=== PATIENT | male | born 1975 | race Caucasian/White ===

== ENCOUNTER → 2019-02-18 08:10 | Outpatient (CLI) | payer OTHER, SELFPAY ==
[2019-02-18 09:37] LABS: Alanine Aminotransferase 36 IU/L (21-72); Aspartate Aminotransferase 26 IU/L (17-59); BUN Creatinine Ratio 23.3 (6-22); Blood Urea Nitrogen 21 mg/dL (9-20); Calcium 8.9 mg/dL (8.4-10.2); Carbon Dioxide 26 mmol/L (22-32); Chloride 106 mmol/L (98-107); Cholesterol 154 mg/dL (140-199); Estimated Glomerular Filt Rate > 60.0 mL/min (>60); Glucose 101 mg/dL (70-100); HDL Cholesterol 48 mg/dL (40-60); HEMOLYSIS < 15 (0-50); LDL Cholesterol Calculated 94 mg/dL (<100); Potassium 4.2 mmol/L (3.4-5.1); Sodium 139 mmol/L (137-145); Triglycerides 62 mg/dL (35-150)
== END ==
PROVIDERS: PCP Internal Medicine; Visit Provider Internal Medicine
DX: Z13.1 Encounter for screening for diabetes mellitus (principal); E78.5 Hyperlipidemia, unspecified
CPT/HCPCS: 36415; 80048; 80061; 84450; 84460

== ENCOUNTER 2021-04-14 19:23 | Inpatient (IN) | payer OTHER, SELFPAY ==
[2021-04-14] VITALS (13 sets, daily range): BP systolic 110–134; BP diastolic 66–84; PULSE 101–134; RESP 16–43; TEMP 37.2; O2SAT 87–96
--- NOTE | 2021-04-14 19:52 | DI.RAD.S_ITS ---
PROCEDURE: XR CHEST 1V INDICATIONS: flu-like symptoms TECHNIQUE: One view of the chest was acquired. COMPARISON: None. FINDINGS: Surgical changes and devices: None. Lungs and pleura: Low lung volumes. Bilateral patchy airspace opacity. No pleural effusions or pneumothorax. Mediastinum: Mediastinal contours appear normal. Heart size is within normal limits. Bones and chest wall: No suspicious bony lesions. Overlying soft tissues appear unremarkable. IMPRESSION: Low lung volumes. Bilateral patchy airspace opacity. Findings in keeping with COVID-19 pneumonia. Dictated by: Geo Babcock M.D. on 04/14/2021 at 20:41 Approved by: Geo Babcock M.D. on 04/14/2021 at 20:42
[2021-04-14 20:26] LABS: Add Manual Diff / Slide Review NO; Basophils Absolute Auto 0 /uL (0-100); Basophils Percent Auto 0.2 % (0-2); Eosinophils Absolute Auto 0 /uL (0-450); Hematocrit 47.3 % (41-53); Hemoglobin 16.3 g/dL (13.5-17.5); Lymphocytes Absolute Auto 900 /uL (1100-4500); Lymphocytes Percent Auto 13.1 % (25-40); Mean Corpuscular HGB Conc 34.4 % (30-36); Mean Corpuscular Hemoglobin 30.6 PG (26-34); Mean Corpuscular Volume 88.9 fL (80-100); Monocytes Absolute Auto 600 /uL (0-900); Monocytes Percent Auto 9.6 % (3-14); Neutrophils Absolute Auto 5100 /uL (1500-7000); Neutrophils Percent Auto 77.1 % (50-75); Platelet Count 158 X10^3/uL (150-400); Red Blood Cell Count 5.32 X10^6/uL (4.5-5.9); Red Cell Distribution Width 13.8 % (11.6-14.8); White Blood Cell Count 6.6 X10^3/uL (4.5-11.0)
[2021-04-14 20:41] LABS: Lactate (Lactic Acid) 1.5 mmol/L (0.7-2.1)
[2021-04-14 20:42] LABS: Alanine Aminotransferase 92 IU/L (<50); Albumin Globulin Ratio 1.4 (1.0-2.8); Alkaline Phosphatase 62 U/L (38-126); Aspartate Aminotransferase 108 IU/L (17-59); BUN Creatinine Ratio 19.8 (6-22); Blood Urea Nitrogen 21 mg/dL (9-20); C-Reactive Protein Quant 2.5 mg/dL (<1.0); Calcium 8.3 mg/dL (8.4-10.2); Carbon Dioxide 24 mmol/L (22-32); Chloride 99 mmol/L (98-107); Creatine Kinase 1551 U/L (55-170); Estimated Glomerular Filt Rate > 60.0 mL/min (>60); Globulin 2.9 g/dL (1.7-4.1); Glucose 120 mg/dL (70-100); HEMOLYSIS < 15 (0-50); Lactate Dehydrogenase 1078 U/L (313-618); Potassium 3.4 mmol/L (3.4-5.1); Sodium 132 mmol/L (137-145); Total Protein 6.9 g/dL (6.3-8.2)
[2021-04-14 20:46] LABS: D Dimer 542 ng/mL (<230)
[2021-04-14 20:52] LABS: NT-proBNP (BNP-Adult 18+) 61 pg/mL (<125); Troponin I 0.031 ng/mL (0.01-0.034)
[2021-04-14 20:55] LABS: CKMB % Relative Index 0.2 % (1.5-5.0); Creatine Kinase MB 3.01 ng/mL (<2.37)
[2021-04-14 20:57] LABS: Procalcitonin 0.14 ng/mL (<0.5)
--- NOTE | 2021-04-14 20:59 | ED_ITS ---
HPI - General Adult General Chief complaint: Shortness of Breath/Dyspnea Stated complaint: covid+, home test- y, dehydrated Time Seen by Provider: 04/14/21 19:50 Source: patient Mode of arrival: Ambulatory History of Present Illness HPI narrative: 46-year-old gentleman with hyperlipidemia presents on day 8 of his COVID infection, he is not vaccinated. He has complaining of fevers, chills, cough, decreased taste, significant diarrhea over the last couple of days no significant vomiting but he is somewhat nauseated. He has noted mild h eadaches, worsening fatigueand significant myalgias. Yesterday he was having trouble going up the stairs and today he was dyspneic even walking across the room which triggered his emergency room visit. On arrival sats were at 87% he was tachycardic and tachypneic to 30. Related Data Allergies Allergy/AdvReac Type Severity Reaction Status Date / Time No Known Drug Allergies Allergy Verified 04/15/21 01:23 Review of Systems Review of Systems Narrative: Remainder of complete review of systems is otherwise unremarkable except for that included in the HPI. Patient History Medical History (Updated 04/15/21 @ 03:38 by Clarisse Ritchie MD) COVID-19 Exam Narrative Exam Narrative: General: Appears moderately ill with respiratory distress. Able to give a complete and coherent history. Well-nourished well-developed HEENT: Moist mucous membranes, normal sclera with reactive pupils, Respiratory: Lungs with scattered rhonchi in the left base and minor scattered wheezes in all lung field. Full and symmetrical air movement. He is tachypneic with rates going up into the 40 range during our interview Cardiac: Tachycardic but Regular rate and rhythm no murmurs no bruits Abdomen: Soft, nontender, good bowel tones, no flank pain Skin: Pale, Warm and dry, no rashes Neurologic: Grossly neurologically intact with no obvious asymmetries or abnormalities Extremities: No trauma, mildly decreased perfusion Psych: Cooperative, appropriate insight and affect Initial Vital Signs Initial Vital Signs: Vital Signs Temperature 98.9 F 04/14/21 19:28 Pulse Rate 134 H 04/14/21 19:28 Respiratory Rate 30 H 04/14/21 19:28 Blood Pressure 134/66 04/14/21 19:28 Pulse Oximetry 87 L 04/14/21 19:28 Course Orders Ordered: ED Orders 04/14/21 19:37 EKG-12 Lead Routine 04/14/21 19:52 XR chest 1V Stat 04/14/21 20:08 C-Reactive Protein Quant Stat Complete Blood Count AUTO DIFF Stat Comprehensive Metabolic Panel Stat D Dimer Stat Lactate (Lactic Acid) Stat Lactate Dehydrogenase Stat NT-proBNP (BNP-Adult 18+) Stat Procalcitonin Stat Troponin & CK Cardiac Panel Stat 04/14/21 20:19 Respiratory Panel (Film Array) Stat 04/14/21 20:40 Blood Culture Stat 04/14/21 21:17 CT angio chest PE protocol Stat 04/15/21 00:21 Consult to Respiratory Therapy Evaluate & Treat 04/15/21 00:48 Magnesium Urgent Troponin I Stat 04/15/21 01:35 Education, smoking cessation ONGOING 04/15/21 01:44 Sputum Culture Stat 04/15/21 01:50 Arterial Blood Gas Stat 04/15/21 05:00 Comprehensive Metabolic Panel DAILY Partial Thromboplastin Time Routine Prothrombin Time INR Routine 04/16/21 05:00 Comprehensive Metabolic Panel DAILY 04/17/21 05:00 Comprehensive Metabolic Panel DAILY Acetaminophen (Acetaminophen 325 Mg Tablet) 650 mg PO Q6HR PRN PRN Reason: Fever/Mild Pain (1-3) Hydrocodone Bitart/Acetaminophen (Hydrocodone/Acet 5/325 Tablet) 2 tab PO Q6HR [facility] Albuterol (Albuterol Hfa Mdi 60 Puff/8 Gm Inhaler) 2 puff INH Q4HR PRN PRN Reason: Shortness Of Breath Dexamethasone (Dexamethasone 10 Mg/Ml Vial) 6 mg IV DAILY [facility] Heparin Sodium (Porcine) (Heparin 5,000 Unit/Ml Vial) 5,000 unit SUBCUT BID [facility] Last Admin: 04/15/21 02:33 Dose: 5,000 unit Documented by: KGALLAG Sodium Chloride (Normal Saline 0.9%) 1,000 mls @ 125 mls/hr IV CONT [facility] Last Admin: 04/14/21 23:00 Dose: 125 mls/hr Documented by: KGALLAG Remdesivir 100 mg/ Sodium (Chloride) 250 mls @ 250 mls/hr IV DAILY [facility] Stop: 04/18/21 09:59 Ketorolac Tromethamine (Ketorolac 30 Mg/Ml Vial) 30 mg IV Q6HR PRN PRN Reason: Pain, Severe (7-10) Stop: 04/20/21 01:40 Lorazepam (Lorazepam 0.5 Mg Tablet) 0.5 mg PO Q4H PRN PRN Reason: Anxiety Naloxone HCl (Naloxone 0.4 Mg/Ml Vial) 0.2 mg IV Q2MIN PRN PRN Reason: Opiate Reversal Ondansetron HCl (Ondansetron 4 Mg/2 Ml Inj) 4 mg IV Q8HR PRN PRN Reason: Nausea And Vomiting Pantoprazole Sodium (Pantoprazole Dr 20 Mg Tablet) 20 mg PO 0600 JERAD Discontinued Medications Dexamethasone (Dexamethasone 10 Mg/Ml Vial) 6 mg IV NOW ONE Stop: 04/14/21 21:21 Last Admin: 04/14/21 21:24 Dose: 6 mg Documented by: WAYNE Sodium Chloride (Normal Saline 0.9%) 1,000 mls @ 1,000 mls/hr IV BOLUS ONE Stop: 04/14/21 22:17 Last Infusion: 04/14/21 23:00 Dose: 0 mls/hr Documented by: Admin: 04/14/21 21:00 Dose: 1,000 mls/hr Documented by: WAYNE Vital Signs Vital signs: Vital Signs - 8 hr 04/14/21 20:07 04/14/21 20:31 04/14/21 21:00 Pulse Rate 110 H 120 H 105 H Respiratory Rate 25 H 40 H 16 Blood Pressure 132/84 110/78 119/80 Pulse Oximetry 94 93 04/14/21 21:10 04/14/21 21:13 04/14/21 21:30 Pulse Rate 104 H Respiratory Rate 40 H 25 H 18 Blood Pressure 124/78 Pulse Oximetry 91 96 95 04/14/21 22:00 04/14/21 22:30 04/14/21 23:00 Pulse Rate 104 H 104 H 104 H Respiratory Rate 38 H 40 H 43 H Blood Pressure Pulse Oximetry 96 96 95 04/14/21 23:30 04/14/21 23:39 04/15/21 00:00 Pulse Rate 104 H 101 H 101 H Respiratory Rate 42 H 38 H 39 H Blood Pressure 126/77 124/75 Pulse Oximetry 93 92 92 04/15/21 00:30 04/15/21 00:31 04/15/21 00:38 Pulse Rate 100 H 101 H Respiratory Rate 32 H 37 H 26 H Blood Pressure 112/68 112/68 Pulse Oximetry 95 93 95 04/15/21 01:00 04/15/21 01:26 04/15/21 01:30 Pulse Rate 98 H 100 H Respiratory Rate 12 26 H 14 Blood Pressure 111/62 106/63 Pulse Oximetry 93 95 92 04/15/21 02:00 Pulse Rate 100 H Respiratory Rate 20 Blood Pressure 106/63 Pulse Oximetry 93 Medical Decision Making Lab Data Result diagrams: 04/14/21 20:08 04/14/21 20:08 Labs: Lab Results 04/14/21 04/14/21 04/14/21 Range/Units 20:08 20:08 20:08 WBC 6.6 (4.5-11.0) X10^3/uL RBC 5.32 (4.5-5.9) X10^6/uL Hgb 16.3 (13.5-17.5) g/dL Hct 47.3 (41-53) % MCV 88.9 (80-100) fL MCH 30.6 (26-34) PG MCHC 34.4 (30-36) % RDW 13.8 (11.6-14.8) % Plt Count 158 (150-400) X10^3/uL Neut % (Auto) 77.1 H (50-75) % Lymph % (Auto) 13.1 L (25-40) % [place] % (Auto) 9.6 (3-14) % Eos % (Auto) 0.0 L (2-4) % Baso % (Auto) 0.2 (0-2) % Neut # (Auto) 5100 (7718-2217) /uL Lymph # (Auto) 900 L (5576-9659) /uL [place] # (Auto) 600 (0-900) /uL Eos # (Auto) 0 (0-450) /uL Baso # (Auto) 0 (0-100) /uL D-Dimer 542 H (<230) ng/mL ABG pH (7.35-7.45) ABG pCO2 (35-45) mmHg ABG pO2 (80-100) mmHg ABG HCO3 (22-26) mmol/L ABG Total CO2 (21-31) mmol/L ABG O2 Saturation (95-100) % ABG Base Excess (-2-2) mmol/L FiO2 Sodium (137-145) mmol/L Potassium (3.4-5.1) mmol/L Chloride (98-107) mmol/L Carbon Dioxide (22-32) mmol/L BUN (9-20) mg/dL Creatinine (0.66-1.25) mg/dL Estimated GFR (>60) mL/min BUN/Creatinine Ratio (6-22) Glucose (70-100) mg/dL Lactate (0.7-2.1) mmol/L Calcium (8.4-10.2) mg/dL Magnesium (1.6-2.3) mg/dL Total Bilirubin (0.2-1.3) mg/dL AST (17-59) IU/L ALT (<50) IU/L Alkaline Phosphatase (38-126) U/L Lactate Dehydrogenase (313-618) U/L Total Creatine Kinase (55-170) U/L CK-MB (CK-2) (<2.37) ng/mL CK-MB (CK-2) Rel Index (1.5-5.0) % Troponin I (0.01-0.034) ng/mL C-Reactive Protein (<1.0) mg/dL NT-Pro-B Natriuret Pep (<125) pg/mL Total Protein (6.3-8.2) g/dL Albumin (3.5-5.0) g/dL Globulin (1.7-4.1) g/dL Albumin/Globulin Ratio (1.0-2.8) Procalcitonin 0.14 (<0.5) ng/mL Chlamy pneumoniae PCR (Not Detect) Adenovirus (PCR) (Not Detect) B. pertussis DNA (PCR) (Not Detecte) B.parapertussis DNA PCR (Not Detecte) Coronavirus OC43 (PCR) (Not Detect) Coronavirus HKU1 (PCR) (Not Detect) Coronavirus 229E (PCR) (Not Detect) SARS-CoV-2 (PCR) (Not Detecte) Coronavirus NL63 (PCR) (Not Detect) Human Metapneumovir PCR (Not Detect) Influenza Type A (PCR) (Not Detect) Influenza Type B (PCR) (Not Detect) M. pneumoniae (PCR) (Not Detect) Parainfluenza 1 (PCR) (Not Detect) Parainfluenza 2 (PCR) (Not Detect) Parainfluenza 3 (PCR) (Not Detect) Parainfluenza 4 (PCR) (Not Detect) RSV (PCR) (Not Detect) Entero/Rhino (PCR) (Not Detect) 04/14/21 04/14/21 04/14/21 Range/Units 20:08 20:08 20:19 WBC (4.5-11.0) X10^3/uL RBC (4.5-5.9) X10^6/uL Hgb (13.5-17.5) g/dL Hct (41-53) % MCV (80-100) fL MCH (26-34) PG MCHC (30-36) % RDW (11.6-14.8) % Plt Count (150-400) X10^3/uL Neut % (Auto) (50-75) % Lymph % (Auto) (25-40) % [place] % (Auto) (3-14) % Eos % (Auto) (2-4) % Baso % (Auto) (0-2) % Neut # (Auto) (6651-9543) /uL Lymph # (Auto) (1908-4215) /uL [place] # (Auto) (0-900) /uL Eos # (Auto) (0-450) /uL Baso # (Auto) (0-100) /uL D-Dimer (<230) ng/mL ABG pH (7.35-7.45) ABG pCO2 (35-45) mmHg ABG pO2 (80-100) mmHg ABG HCO3 (22-26) mmol/L ABG Total CO2 (21-31) mmol/L ABG O2 Saturation (95-100) % ABG Base Excess (-2-2) mmol/L FiO2 Sodium 132 L (137-145) mmol/L Potassium 3.4 (3.4-5.1) mmol/L Chloride 99 (98-107) mmol/L Carbon Dioxide 24 (22-32) mmol/L BUN 21 H (9-20) mg/dL Creatinine 1.06 (0.66-1.25) mg/dL Estimated GFR > 60.0 (>60) mL/min BUN/Creatinine Ratio 19.8 (6-22) Glucose 120 H (70-100) mg/dL Lactate 1.5 (0.7-2.1) mmol/L Calcium 8.3 L (8.4-10.2) mg/dL Magnesium (1.6-2.3) mg/dL Total Bilirubin 1.0 (0.2-1.3) mg/dL AST 108 H (17-59) IU/L ALT 92 H (<50) IU/L Alkaline Phosphatase 62 (38-126) U/L Lactate Dehydrogenase 1078 H (313-618) U/L Total Creatine Kinase 1551 H (55-170) U/L CK-MB (CK-2) 3.01 H (<2.37) ng/mL CK-MB (CK-2) Rel Index 0.2 L (1.5-5.0) % Troponin I 0.031 (0.01-0.034) ng/mL C-Reactive Protein 2.5 H (<1.0) mg/dL NT-Pro-B Natriuret Pep 61 (<125) pg/mL Total Protein 6.9 (6.3-8.2) g/dL Albumin 4.0 (3.5-5.0) g/dL Globulin 2.9 (1.7-4.1) g/dL Albumin/Globulin Ratio 1.4 (1.0-2.8) Procalcitonin (<0.5) ng/mL Chlamy pneumoniae PCR Not detected (Not Detect) Adenovirus (PCR) Not detected (Not Detect) B. pertussis DNA (PCR) Not detected (Not Detecte) B.parapertussis DNA PCR Not detected (Not Detecte) Coronavirus OC43 (PCR) Not detected (Not Detect) Coronavirus HKU1 (PCR) Not detected (Not Detect) Coronavirus 229E (PCR) Not detected (Not Detect) SARS-CoV-2 (PCR) Detected H (Not Detecte) Coronavirus NL63 (PCR) Not detected (Not Detect) Human Metapneumovir PCR Not detected (Not Detect) Influenza Type A (PCR) Not detected (Not Detect) Influenza Type B (PCR) Not detected (Not Detect) M. pneumoniae (PCR) Not detected (Not Detect) Parainfluenza 1 (PCR) Not detected (Not Detect) Parainfluenza 2 (PCR) Not detected (Not Detect) Parainfluenza 3 (PCR) Not detected (Not Detect) Parainfluenza 4 (PCR) Not detected (Not Detect) RSV (PCR) Not detected (Not Detect) Entero/Rhino (PCR) Not detected (Not Detect) 04/15/21 04/15/21 04/15/21 Range/Units 00:48 00:48 01:50 WBC (4.5-11.0) X10^3/uL RBC (4.5-5.9) X10^6/uL Hgb (13.5-17.5) g/dL Hct (41-53) % MCV (80-100) fL MCH (26-34) PG MCHC (30-36) % RDW (11.6-14.8) % Plt Count (150-400) X10^3/uL Neut % (Auto) (50-75) % Lymph % (Auto) (25-40) % [place] % (Auto) (3-14) % Eos % (Auto) (2-4) % Baso % (Auto) (0-2) % Neut # (Auto) (5506-3573) /uL Lymph # (Auto) (5106-4200) /uL [place] # (Auto) (0-900) /uL Eos # (Auto) (0-450) /uL Baso # (Auto) (0-100) /uL D-Dimer (<230) ng/mL ABG pH 7.43 (7.35-7.45) ABG pCO2 36.7 (35-45) mmHg ABG pO2 94 (80-100) mmHg ABG HCO3 24 (22-26) mmol/L ABG Total CO2 25 (21-31) mmol/L ABG O2 Saturation 98 (95-100) % ABG Base Excess 0.0 (-2-2) mmol/L FiO2 60 Sodium (137-145) mmol/L Potassium (3.4-5.1) mmol/L Chloride (98-107) mmol/L Carbon Dioxide (22-32) mmol/L BUN (9-20) mg/dL Creatinine (0.66-1.25) mg/dL Estimated GFR (>60) mL/min BUN/Creatinine Ratio (6-22) Glucose (70-100) mg/dL Lactate (0.7-2.1) mmol/L Calcium (8.4-10.2) mg/dL Magnesium 2.2 (1.6-2.3) mg/dL Total Bilirubin (0.2-1.3) mg/dL AST (17-59) IU/L ALT (<50) IU/L Alkaline Phosphatase (38-126) U/L Lactate Dehydrogenase (313-618) U/L Total Creatine Kinase (55-170) U/L CK-MB (CK-2) (<2.37) ng/mL CK-MB (CK-2) Rel Index (1.5-5.0) % Troponin I 0.038 H (0.01-0.034) ng/mL C-Reactive Protein (<1.0) mg/dL NT-Pro-B Natriuret Pep (<125) pg/mL Total Protein (6.3-8.2) g/dL Albumin (3.5-5.0) g/dL Globulin (1.7-4.1) g/dL Albumin/Globulin Ratio (1.0-2.8) Procalcitonin (<0.5) ng/mL Chlamy pneumoniae PCR (Not Detect) Adenovirus (PCR) (Not Detect) B. pertussis DNA (PCR) (Not Detecte) B.parapertussis DNA PCR (Not Detecte) Coronavirus OC43 (PCR) (Not Detect) Coronavirus HKU1 (PCR) (Not Detect) Coronavirus 229E (PCR) (Not Detect) SARS-CoV-2 (PCR) (Not Detecte) Coronavirus NL63 (PCR) (Not Detect) Human Metapneumovir PCR (Not Detect) Influenza Type A (PCR) (Not Detect) Influenza Type B (PCR) (Not Detect) M. pneumoniae (PCR) (Not Detect) Parainfluenza 1 (PCR) (Not Detect) Parainfluenza 2 (PCR) (Not Detect) Parainfluenza 3 (PCR) (Not Detect) Parainfluenza 4 (PCR) (Not Detect) RSV (PCR) (Not Detect) Entero/Rhino (PCR) (Not Detect) Imaging Data Chest x-ray: Radiologist's Impression: FINDINGS:? ? Surgical changes and devices:? None.? ? Lungs and pleura:? Low lung volumes.? Bilateral patchy airspace opacity.? No pleural effusions or pneumothorax.? ? Mediastinum:? Mediastinal contours appear normal.? Heart size is within normal limits.? ? Bones and chest wall:? No suspicious bony lesions.? Overlying soft tissues appear unremarkable.? ? IMPRESSION:? Low lung volumes.? Bilateral patchy airspace opacity.? Findings in keeping with COVID-19 pneumonia. ? ? Dictated by: Geo Babcock M.D. on 04/14/2021 at 20:41 ? ? CT scan - chest: Radiologist's Impression: FINDINGS:? Image quality:? Excellent.? ? Pulmonary arteries:? Pulmonary arteries are normal in size, and demonstrate no intraluminal filling defects to suggest central pulmonary embolism.? ? Lungs and pleura:? Diffuse bilateral ground-glass opacities consistent with viral pneumonia seen.? No pleural effusions or pneumothorax.? Central and peripheral a irways are patent.? ? Mediastinum:? Heart size is normal, without pericardial effusion.? No mediasti nal or hilar adenopathy.? Thoracic aorta is normal in caliber and enhancement.? The pulmonary arteries are poorly opacified, most of the bolus is still in the SVC.? The density of the pulmonary arteries is 95 Hounsfield units and therefore this study is nondiagnostic for pulmonary embolism.? Esophagus is normal in caliber, without hiatal hernia.? ? Bones and chest wall:? No suspicious bony lesions.? Ribs and thoracic spine appear intact throughout.? Thyroid gland is normal.? No axillary or supraclavicular adenopathy.? ? Abdomen:? Visualized upper abdominal solid organs appear normal in the early arterial phase of enhancement.? ? IMPRESSION:? 1. Diffuse bilateral airspace opacities consistent with severe COVID-19 pneumonia. 2. Nondiagnostic study for pulmonary embolism due to contrast opacification of the pulmonary arteries.? Within these limitations, no large central pulmonary artery embolus is seen.? ? ? Dictated by: Mickey Smith M.D. on 04/14/2021 at 22:00 ? ? ECG Data Interpretation: Sinus tach at 112 Normal axis No acute ischemic changes MDM Narrative Medical decision making narrative: 46-year-old on vaccinated gentleman on day 8 of his COVID infection. Chest x-ray shows significant bilateral patchy infiltrates. Oxygen saturations are beginning to drop. He is requiring more oxygen during his emergency room stay and is now on a non-rebreather with saturations in the upper 90s and respiratory rate dropping from 40 into the mid 20s. He is much more comfortable. His D-dimer is elevated and a CT scan will be ordered. EKG does not suggest acute ischemia. Anticipate the need for admission and will contact the hospitalist service after the CT scan has returned. Mildly elevated LFTs, will discuss appropriateness of remdesivir with the hospitalist service but will begin Decadron in the ER. Patient's respiratory status continued to worsen with increasing tachypnea on 100% non-rebreather. He is placed on high-flow oxygen. Care is reviewed with the internal medicine service and patient is accepted for admission. Discharge Plan Departure Patient Disposition: Admitted As Inpatient Clinical Impression: Pneumonia due to 2019 novel coronavirus Admit Date/Time: 04/15/21 02:38 Admit Provider: Юлия Lorenzo
[2021-04-14] MEDS: SODIUM CHLORIDE 0.9% 1,000 ML 1000 ML IV (21:00)
--- NOTE | 2021-04-14 21:17 | DI.CT.S_ITS ---
PROCEDURE: CT ANGIO CHEST PE PROTOCOL INDICATIONS: covid +, elevated d dimer, tachpic and tachycardic TECHNIQUE: After the administration of intravenous contrast, 2 mm thick sections acquired from the pulmonary apices to the posterior costophrenic angles. 3-dimensional maximum intensity projection (MIP) coronal and sagittal reformats were then acquired through the thorax. For radiation dose reduction, the following was used: automated exposure control, adjustment of mA and/or kV according to patient size. COMPARISON: None. FINDINGS: Image quality: Excellent. Pulmonary arteries: Pulmonary arteries are normal in size, and demonstrate no intraluminal filling defects to suggest central pulmonary embolism. Lungs and pleura: Diffuse bilateral ground-glass opacities consistent with viral pneumonia seen. No pleural effusions or pneumothorax. Central and peripheral airways are patent. Mediastinum: Heart size is normal, without pericardial effusion. No mediastinal or hilar adenopathy. Thoracic aorta is normal in caliber and enhancement. The pulmonary arteries are poorly opacified, most of the bolus is still in the SVC. The density of the pulmonary arteries is 95 Hounsfield units and therefore this study is nondiagnostic for pulmonary embolism. Esophagus is normal in caliber, without hiatal hernia. Bones and chest wall: No suspicious bony lesions. Ribs and thoracic spine appear intact throughout. Thyroid gland is normal. No axillary or supraclavicular adenopathy. Abdomen: Visualized upper abdominal solid organs appear normal in the early arterial phase of enhancement. IMPRESSION: 1. Diffuse bilateral airspace opacities consistent with severe COVID-19 pneumonia. 2. Nondiagnostic study for pulmonary embolism due to contrast opacification of the pulmonary arteries. Within these limitations, no large central pulmonary artery embolus is seen. Dictated by: Mickey Smith M.D. on 04/14/2021 at 22:00 Approved by: Mickey Smith M.D. on 04/14/2021 at 22:07
[2021-04-14] MEDS: DEXAMETHASONE 10 MG/ML VIAL 6 MG IV (21:24)
[2021-04-14 21:36] LABS: Adenovirus Not Detected (Not Detect); B. parapertussis Not Detected (Not Detecte); Bordetella pertussis Not Detected (Not Detecte); Chlamydophila pneumoniae Not Detected (Not Detect); Coronavirus 229E Not Detected (Not Detect); Coronavirus HKU1 Not Detected (Not Detect); Coronavirus NL 63 Not Detected (Not Detect); Coronavirus OC43 Not Detected (Not Detect); Human Metapneumovirus Not Detected (Not Detect); Human Rhinovirus/Enterovirus Not Detected (Not Detect); Influenza A Not Detected (Not Detect); Influenza B Not Detected (Not Detect); Mycoplasma pneumoniae Not Detected (Not Detect); Parainfluenza Virus 1 Not Detected (Not Detect); Parainfluenza Virus 2 Not Detected (Not Detect); Parainfluenza Virus 3 Not Detected (Not Detect); Parainfluenza Virus 4 Not Detected (Not Detect); Respiratory Syncytial Virus Not Detected (Not Detect)
[2021-04-14 21:38] LABS: SARS- CoV-2 Detected (Not Detecte)
[2021-04-14] MEDS: SODIUM CHLORIDE 0.9% 1,000 ML 125 ML IV (23:00)
[2021-04-15] VITALS (46 sets, daily range): BP systolic 95–129; BP diastolic 56–79; PULSE 75–104; RESP 6–39; TEMP 35.7–37.1; O2SAT 90–97; BMI 31.6
[2021-04-15 01:13] LABS: Troponin I 0.038 ng/mL (0.01-0.034)
--- NOTE | 2021-04-15 01:43 | PC.NURSE ---
Pt turning on side to help with pronation. Pt has very flat affect, limited eye contact.
[2021-04-15 01:56] LABS: Magnesium 2.2 mg/dL (1.6-2.3)
[2021-04-15 02:08] LABS: Fractionated Inspired Oxygen 60; HCO3 ABG 24 mmol/L (22-26); Oxygen Saturation ABG 98 % (95-100); PCO2 ABG 36.7 mmHg (35-45); PO2 ABG 94 mmHg (80-100); TCO2 ABG 25 mmol/L (21-31); pH ABG 7.43 (7.35-7.45)
[2021-04-15] MEDS: HEPARIN 5,000 UNIT/ML VIAL 5000 UNIT SUBCUT ×3 (02:33→21:20)
--- NOTE | 2021-04-15 04:43 | PM.HP.1 ---
History of Present Illness History of Present Illness Date Patient Seen: 04/15/21 Time Patient Seen: 00:34 Chief complaint: covid+, home test- y, dehdrated Narrative: Jesus Murray is a 46-year-old gentleman with a hx of hyperlipidemia and over weight who presented yesterday, day 8 of his COVID infection, he is NOT vaccinated. His symptoms present 7 days ago with fevers, chills, body aches, cough, decreased taste, significant diarrhea over the last couple of days no vomiting but he is somewhat nauseated. He has noted mild headaches, worsening fatigueand significant myalgias. Yesterday he was having trouble going up the stairs and today he was dyspneic even walking across the room which triggered his emergency room visit. On arrival sats were at 87% he was tachycardic and tachypneic to 30. 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 Patient only takes Lipitor 20 mg daily. Patient denies smoking, alcohol intake, recreational substance use. Patient denies any cardiovascular history. Patient was assessed for admit down in the emergency room initial presenting vitals temp 98.9?, BP 124/78, HR 104, RR 42, 93% on 100% non-rebreather. The patient was eventually placed on high-flow respiration rate decreased to 32 patient was on 60 L at 75%. Patient's CBC and CMP were grossly normal, D-dimer was 542, Chest CTA demonstrated diffuse bilateral airspace opacities consistent with severe COVID-19 pneumonia. Nondiagnostic study for pulmonary embolism due to contrast opacification of the pulmonary arteries. Within these limitations, no large central pulmonary artery embolus is seen in chest Patient's chest x-ray demonstrated low lung volume, bilateral patchy airspace opacity. Lactate, procalcitonin, and BNP, were all normal patient's lactate ED 1078, total creatinine kinase 1551, CK-2: 3.10, initial troponin 0.031. I personally reviewed patient's EKG demonstrated sinus tachycardia with a rate of 112, otherwise normal EKG. Patient admitted for acute respiratory failure due to severe COVID-19 pneumonia. Patient History Medical History (Updated 04/15/21 @ 04:55 [facility] COVID-19 History of pineal cyst Hyperlipidemia Obesity (BMI 30.0-34.9) Surgical History (Updated 04/15/21 @ 04:55 [facility] History of elbow surgery History of repair of anterior cruciate ligament of left knee Family & Social History Family History (Updated 04/15/21 @ 04:56 [facility] Mother Diabetes mellitus Hypertension Hypothyroidism Father Aneurysm Social History: household members spouse, with 5 children, 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 Meds Home Medications and Allergies Allergies Allergy/AdvReac Type Severity Reaction Status Date / Time No Known Drug Allergies Allergy Verified 04/15/21 01:23 Review of Systems Review of Systems Narrative: All 12 point systems reviewed with the patient and are negative except otherwise documented. Exam Vital Signs (past 8 hours): - 04/14/21 21:00 04/14/21 21:10 04/14/21 21:13 Temperature Pulse Rate 105 H Respiratory Rate 16 40 H 25 H Blood Pressure 119/80 Pulse Oximetry 91 96 04/14/21 21:30 04/14/21 22:00 04/14/21 22:30 Temperature Pulse Rate 104 H 104 H 104 H Respiratory Rate 18 38 H 40 H Blood Pressure 124/78 Pulse Oximetry 95 96 96 04/14/21 23:00 04/14/21 23:30 04/14/21 23:39 Temperature Pulse Rate 104 H 104 H 101 H Respiratory Rate 43 H 42 H 38 H Blood Pressure 126/77 Pulse Oximetry 95 93 92 04/15/21 00:00 04/15/21 00:30 04/15/21 00:31 Temperature Pulse Rate 101 H 100 H 101 H Respiratory Rate 39 H 32 H 37 H Blood Pressure 124/75 112/68 112/68 Pulse Oximetry 92 95 93 04/15/21 00:38 04/15/21 01:00 04/15/21 01:26 Temperature Pulse Rate 98 H Respiratory Rate 26 H 12 26 H Blood Pressure 111/62 Pulse Oximetry 95 93 95 04/15/21 01:30 04/15/21 02:00 04/15/21 02:30 Temperature Pulse Rate 100 H 100 H 94 H Respiratory Rate 14 21 23 Blood Pressure 106/63 102/58 L 96/56 L Pulse Oximetry 92 92 94 04/15/21 03:00 04/15/21 03:15 04/15/21 03:24 Temperature Pulse Rate 92 H 92 H 92 H Respiratory Rate 24 27 H 36 H Blood Pressure 95/60 104/65 Pulse Oximetry 94 94 94 04/15/21 03:36 04/15/21 03:40 04/15/21 03:45 Temperature 98.7 F Pulse Rate 104 H 103 H 97 H Respiratory Rate 30 H 33 H 36 H Blood Pressure 129/73 129/73 Pulse Oximetry 91 94 95 Fraction of Inspired Oxygen 70 Oxygen Delivery Method Heated High Flow Oxygen Flow Rate 60 Narrative Exam Narrative: General: Patient is a well-developed, well-nourished male in mild distress at this time. HEENT: Normocephalic, atraumatic, extraocular muscles intact, oral pharynx is clear and mucous membranes are dry. Neck is supple and symmetric, trachea is midline, no adenopathy, no thyroid enlargement, nontender, no masses palpated. Negative for JVD Chest: Normal AP diameter and contour without kyphoscoliosis, no nasal flaring, retractions. Positive tachypneic labored breathing. Lungs: Auscultation of all lung koch are coarse, diminished, poor air exchange, rhonchi in the left base, scattered occasional expiratory wheezing throughout. Cardio: S1 & S2 with Tachycardic rate and regular rhythm without murmur, rubs, or gallops, no carotid bruit, no cardiac pulsations present. Abdomen: Soft nontender, negative for organomegaly, or masses. Bowel sounds are present in all 4 quadrants without guarding or rebound, no CVA tenderness. Musculoskeletal: Muscle strength and tone are equal within normal limits, no deformity, crepitus, effusions, cyanosis, clubbing or edema present. Full range of motion intact radial and pedal pulses are normal. Skin: Warm dry and intact without rashes, ulcerations or petechiae. Neuro: Alert and orientated x3, strength is +5/5 in all extremities, sensation to touch intact, no gross deficits noted of cranial nerves. Psych: Patient has a well-kept appearance, patient avoided eye contact, Very Flat affect, unable to assess mental status attitude thought context and judgments for appropriate age. Objective Labs Result Diagrams: 04/14/21 20:08 04/14/21 20:08 Labs: Laboratory Results - last 24 hr 04/14/21 04/14/21 04/14/21 20:08 20:08 20:08 WBC 6.6 RBC 5.32 Hgb 16.3 Hct 47.3 MCV 88.9 MCH 30.6 MCHC 34.4 RDW 13.8 Plt Count 158 Neut % (Auto) 77.1 H Lymph % (Auto) 13.1 L [place] % (Auto) 9.6 Eos % (Auto) 0.0 L Baso % (Auto) 0.2 Neut # (Auto) 5100 Lymph # (Auto) 900 L [place] # (Auto) 600 Eos # (Auto) 0 Baso # (Auto) 0 D-Dimer 542 H ABG pH ABG pCO2 ABG pO2 ABG HCO3 ABG Total CO2 ABG O2 Saturation ABG Base Excess FiO2 Sodium Potassium Chloride Carbon Dioxide BUN Creatinine Estimated GFR BUN/Creatinine Ratio Glucose Lactate Calcium Magnesium Total Bilirubin AST ALT Alkaline Phosphatase Lactate Dehydrogenase Total Creatine Kinase CK-MB (CK-2) CK-MB (CK-2) Rel Index Troponin I C-Reactive Protein NT-Pro-B Natriuret Pep Total Protein Albumin Globulin Albumin/Globulin Ratio Procalcitonin 0.14 Chlamy pneumoniae PCR Adenovirus (PCR) B. pertussis DNA (PCR) B.parapertussis DNA PCR Coronavirus OC43 (PCR) Coronavirus HKU1 (PCR) Coronavirus 229E (PCR) SARS-CoV-2 (PCR) Coronavirus NL63 (PCR) Human Metapneumovir PCR Influenza Type A (PCR) Influenza Type B (PCR) M. pneumoniae (PCR) Parainfluenza 1 (PCR) Parainfluenza 2 (PCR) Parainfluenza 3 (PCR) Parainfluenza 4 (PCR) RSV (PCR) Entero/Rhino (PCR) 04/14/21 04/14/21 04/14/21 20:08 20:08 20:19 WBC RBC Hgb Hct MCV MCH MCHC RDW Plt Count Neut % (Auto) Lymph % (Auto) [place] % (Auto) Eos % (Auto) Baso % (Auto) Neut # (Auto) Lymph # (Auto) [place] # (Auto) Eos # (Auto) Baso # (Auto) D-Dimer ABG pH ABG pCO2 ABG pO2 ABG HCO3 ABG Total CO2 ABG O2 Saturation ABG Base Excess FiO2 Sodium 132 L Potassium 3.4 Chloride 99 Carbon Dioxide 24 BUN 21 H Creatinine 1.06 Estimated GFR > 60.0 BUN/Creatinine Ratio 19.8 Glucose 120 H Lactate 1.5 Calcium 8.3 L Magnesium Total Bilirubin 1.0 AST 108 H ALT 92 H Alkaline Phosphatase 62 Lactate Dehydrogenase 1078 H Total Creatine Kinase 1551 H CK-MB (CK-2) 3.01 H CK-MB (CK-2) Rel Index 0.2 L Troponin I 0.031 C-Reactive Protein 2.5 H NT-Pro-B Natriuret Pep 61 Total Protein 6.9 Albumin 4.0 Globulin 2.9 Albumin/Globulin Ratio 1.4 Procalcitonin Chlamy pneumoniae PCR Not detected Adenovirus (PCR) Not detected B. pertussis DNA (PCR) Not detected B.parapertussis DNA PCR Not detected Coronavirus OC43 (PCR) Not detected Coronavirus HKU1 (PCR) Not detected Coronavirus 229E (PCR) Not detected SARS-CoV-2 (PCR) Detected H Coronavirus NL63 (PCR) Not detected Human Metapneumovir PCR Not detected Influenza Type A (PCR) Not detected Influenza Type B (PCR) Not detected M. pneumoniae (PCR) Not detected Parainfluenza 1 (PCR) Not detected Parainfluenza 2 (PCR) Not detected Parainfluenza 3 (PCR) Not detected Parainfluenza 4 (PCR) Not detected RSV (PCR) Not detected Entero/Rhino (PCR) Not detected 04/15/21 04/15/21 04/15/21 00:48 00:48 01:50 WBC RBC Hgb Hct MCV MCH MCHC RDW Plt Count Neut % (Auto) Lymph % (Auto) [place] % (Auto) Eos % (Auto) Baso % (Auto) Neut # (Auto) Lymph # (Auto) [place] # (Auto) Eos # (Auto) Baso # (Auto) D-Dimer ABG pH 7.43 ABG pCO2 36.7 ABG pO2 94 ABG HCO3 24 ABG Total CO2 25 ABG O2 Saturation 98 ABG Base Excess 0.0 FiO2 60 Sodium Potassium Chloride Carbon Dioxide BUN Creatinine Estimated GFR BUN/Creatinine Ratio Glucose Lactate Calcium Magnesium 2.2 Total Bilirubin AST ALT Alkaline Phosphatase Lactate Dehydrogenase Total Creatine Kinase CK-MB (CK-2) CK-MB (CK-2) Rel Index Troponin I 0.038 H C-Reactive Protein NT-Pro-B Natriuret Pep Total Protein Albumin Globulin Albumin/Globulin Ratio Procalcitonin Chlamy pneumoniae PCR Adenovirus (PCR) B. pertussis DNA (PCR) B.parapertussis DNA PCR Coronavirus OC43 (PCR) Coronavirus HKU1 (PCR) Coronavirus 229E (PCR) SARS-CoV-2 (PCR) Coronavirus NL63 (PCR) Human Metapneumovir PCR Influenza Type A (PCR) Influenza Type B (PCR) M. 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 1. Acute respiratory failure with hypoxia, secondary to COVID-19 pneumonia, severe, present on admission -patient of quickly escalated from nasal cannula to non-rebreather to heated high-flow. Patient currently on 60 L at 75% respirations 32 on heated high-flow. -patient education provided regarding acquiring vaccination following recovery from COVID pneumonia. -Notified emergency room staff as to uatsdin exposure at the [facility] -respiratory consult PRN, spirometry -patient started on remdesivir, dexamethasone, and baricinib -albuterol HFA inhaler 2 puffs q.4 hours as needed for cough or shortness of breath -patient education provided regarding recurrent and prolonged pronating for improved recovery, pain medication will be offered to offset the discomfort -Ativan for increased anxiety due to isolation -blood and sputum cultures pending -repeat trope ordered -NS at 125cc/hr -heparin 5000 units b.i.d. 2. Hyperlipidemia, chronic, present on admission -continue patient's Lipitor 20 mg 3. Obesity as evidence by BMI of 31.7, acute on chronic, present on admission -consideration will be given for dietary counseling Code status:Full Surrogate decision maker: Carlos Murray - COVID PCR:POSITIVE COVID vaccination: UNVACCINATED DVT/VTE prophylaxis: Heparin and SCDs Disposition: Patient admitted to the ICU, expected length of stay greater than 2 midnights due to severity COVID-19. I have utilized all available immediate resources to obtain, update, or review the patient's current medications. I confirmed that the patient's advanced care plan is present, Code status is documented and/or surrogate decision maker is listed in the patient's medical record. Time Spent With Patient Critical Care time: I spent a total of [] minutes of critical care time on this patient's care today; this time is exclusive of procedural time.
[2021-04-15 05:09] LABS: INR 1.2 (0.9-1.3); Prothrombin Time 13.1 SECONDS (10.1-12.7)
[2021-04-15 05:12] LABS: PTT Partial Thromboplastin Tim 32 SECONDS (26.4-36.2)
[2021-04-15 05:17] LABS: Alanine Aminotransferase 93 IU/L (<50); Albumin 3.5 g/dL (3.5-5.0); Albumin Globulin Ratio 1.3 (1.0-2.8); Alkaline Phosphatase 47 U/L (38-126); Aspartate Aminotransferase 106 IU/L (17-59); BUN Creatinine Ratio 19.1 (6-22); Bilirubin Total 0.9 mg/dL (0.2-1.3); Blood Urea Nitrogen 18 mg/dL (9-20); Calcium 7.9 mg/dL (8.4-10.2); Carbon Dioxide 24 mmol/L (22-32); Chloride 103 mmol/L (98-107); Estimated Glomerular Filt Rate > 60.0 mL/min (>60); Globulin 2.7 g/dL (1.7-4.1); Glucose 127 mg/dL (70-100); HEMOLYSIS 37 (0-50); Potassium 3.9 mmol/L (3.4-5.1); Sodium 134 mmol/L (137-145); Total Protein 6.2 g/dL (6.3-8.2)
[2021-04-15] MEDS: HYDROCODONE/ACET 5/325 TABLET 2 TAB PO ×2 (06:21→13:21)
[2021-04-15] MEDS: PANTOPRAZOLE DR 20 MG TABLET PO (06:21)
[2021-04-15] MEDS: BARICITINIB 2 MG TABLET 4 MG PO (10:05)
[2021-04-15] MEDS: DEXAMETHASONE 10 MG/ML VIAL 6 MG IV (10:05)
[2021-04-15] MEDS: REMDESIVIR 100 MG in SODIUM CHLORIDE 0.9% 230 ML 250 ML IV (10:06)
[2021-04-15] MEDS: LORazepam 0.5 MG TABLET PO (10:37)
--- NOTE | 2021-04-15 12:01 | P.TELICUCN_ITS ---
History of Present Illness Consult details Chief complaint: covid+, home test- y, dehdrated :: This patient was seen via real time interactive two-way audiovisual telecommunication. 46 year old man presdentin with fevers chills, myalgias and cough - tested postive for COVID 19. During his ED w/u required increasing amouint of oxgen. Transferred to ICU for further management as he was needing hi flow NC. Kendraregina tly on dexamethasone, remdesivir and baricitnib. I reivewd his imaging - and there were b/l intersitial opacities with mosiac attenuation. Currently he is awakr, tolerating a diet, and on 60% fio2. [facility] Medical History (Updated 04/15/21 @ 04:55 by CHRISTIANO Cuevas) COVID-19 History of pineal cyst Hyperlipidemia Obesity (BMI 30.0-34.9) Surgical History (Updated 04/15/21 @ 04:55 by CHRISTIANO Cuevas) History of elbow surgery History of repair of anterior cruciate ligament of left knee Family History (Updated 04/15/21 @ 04:56 by CHRISTIANO Cuevas) Mother Diabetes mellitus Hypertension Hypothyroidism Father Aneurysm Social History household members: spouse Current Medications Current Medications Medications: Home Medications atorvastatin 20 mg tablet 20 mg PO BEDTIME 04/15/21 [History Confirmed 04/15/21] Visit Medications (administered) Generic Name Dose Route Start Last Admin Trade Name Freq PRN Reason Stop Dose Admin Hydrocodone Bitart/Acetaminophen 2 tab 04/15/21 06:00 04/15/21 06:21 Hydrocodone/Acet 5/325 Tablet PO 2 tab Q6HR JERAD Administration Dexamethasone 6 mg 04/15/21 09:00 04/15/21 10:05 Dexamethasone 10 Mg/Ml Vial IV 6 mg DAILY JERAD Administration Heparin Sodium (Porcine) 5,000 unit 04/15/21 01:45 04/15/21 10:04 Heparin 5,000 Unit/Ml Vial SUBCUT 5,000 unit BID JERAD Administration Sodium Chloride 1,000 mls @ 125 mls/hr 04/14/21 20:00 04/15/21 06:40 Normal Saline 0.9% IV 125 mls/hr CONT JERAD Infusion Remdesivir 100 mg/ Sodium 250 mls @ 250 mls/hr 04/15/21 09:00 04/15/21 10:06 Chloride IV 04/18/21 09:59 250 mls/hr DAILY JERAD Administration Lorazepam 0.5 mg 04/15/21 00:26 04/15/21 10:37 Lorazepam 0.5 Mg Tablet PO 0.5 mg Q4H PRN Administration Anxiety Pantoprazole Sodium 20 mg 04/15/21 06:00 04/15/21 06:[address] 20 Mg Tablet PO 20 mg 0600 JERAD Administration Review of Systems Review of Systems Narrative: unable to botain due ot patient condition Exam Vital Signs (past 8 hours): - 04/15/21 04:15 04/15/21 04:30 04/15/21 04:45 Temperature Pulse Rate 93 H 87 85 Respiratory Rate 16 23 18 Blood Pressure Pulse Oximetry 96 96 96 04/15/21 05:00 04/15/21 05:15 04/15/21 05:30 Temperature Pulse Rate 84 82 82 Respiratory Rate 24 24 26 H Blood Pressure 109/72 Pulse Oximetry 96 95 95 04/15/21 05:45 04/15/21 06:00 04/15/21 06:15 Temperature Pulse Rate 79 85 78 Respiratory Rate 25 H 24 24 Blood Pressure 121/79 121/79 Pulse Oximetry 96 96 95 04/15/21 07:55 04/15/21 08:00 04/15/21 10:15 Temperature 98.2 F Pulse Rate 94 H 80 90 Respiratory Rate 20 21 20 Blood Pressure 118/77 118/77 Pulse Oximetry 97 96 92 Fraction of Inspired Oxygen 60 Oxygen Delivery Method Heated High Flow Oxygen Flow Rate 60 Narrative Exam Narrative: surrogate for exam is primary team Objective Labs Result Diagrams: 04/14/21 20:08 04/15/21 04:33 Labs: Laboratory Results - last 24 hr 04/14/21 04/14/21 04/14/21 20:08 20:08 20:08 WBC 6.6 RBC 5.32 Hgb 16.3 Hct 47.3 MCV 88.9 MCH 30.6 MCHC 34.4 RDW 13.8 Plt Count 158 Neut % (Auto) 77.1 H Lymph % (Auto) 13.1 L [place] % (Auto) 9.6 Eos % (Auto) 0.0 L Baso % (Auto) 0.2 Neut # (Auto) 5100 Lymph # (Auto) 900 L [place] # (Auto) 600 Eos # (Auto) 0 Baso # (Auto) 0 PT INR APTT D-Dimer 542 H ABG pH ABG pCO2 ABG pO2 ABG HCO3 ABG Total CO2 ABG O2 Saturation ABG Base Excess FiO2 Sodium Potassium Chloride Carbon Dioxide BUN Creatinine Estimated GFR BUN/Creatinine Ratio Glucose Lactate Calcium Magnesium Total Bilirubin AST ALT Alkaline Phosphatase Lactate Dehydrogenase Total Creatine Kinase CK-MB (CK-2) CK-MB (CK-2) Rel Index Troponin I C-Reactive Protein NT-Pro-B Natriuret Pep Total Protein Albumin Globulin Albumin/Globulin Ratio Procalcitonin 0.14 Nasal Screen MRSA (PCR) Chlamy pneumoniae PCR Adenovirus (PCR) B. pertussis DNA (PCR) B.parapertussis DNA PCR Coronavirus OC43 (PCR) Coronavirus HKU1 (PCR) Coronavirus 229E (PCR) SARS-CoV-2 (PCR) Coronavirus NL63 (PCR) Human Metapneumovir PCR Influenza Type A (PCR) Influenza Type B (PCR) M. pneumoniae (PCR) Parainfluenza 1 (PCR) Parainfluenza 2 (PCR) Parainfluenza 3 (PCR) Parainfluenza 4 (PCR) RSV (PCR) Entero/Rhino (PCR) 04/14/21 04/14/21 04/14/21 20:08 20:08 20:19 WBC RBC Hgb Hct MCV MCH MCHC RDW Plt Count Neut % (Auto) Lymph % (Auto) [place] % (Auto) Eos % (Auto) Baso % (Auto) Neut # (Auto) Lymph # (Auto) [place] # (Auto) Eos # (Auto) Baso # (Auto) PT INR APTT D-Dimer ABG pH ABG pCO2 ABG pO2 ABG HCO3 ABG Total CO2 ABG O2 Saturation ABG Base Excess FiO2 Sodium 132 L Potassium 3.4 Chloride 99 Carbon Dioxide 24 BUN 21 H Creatinine 1.06 Estimated GFR > 60.0 BUN/Creatinine Ratio 19.8 Glucose 120 H Lactate 1.5 Calcium 8.3 L Magnesium Total Bilirubin 1.0 AST 108 H ALT 92 H Alkaline Phosphatase 62 Lactate Dehydrogenase 1078 H Total Creatine Kinase 1551 H CK-MB (CK-2) 3.01 H CK-MB (CK-2) Rel Index 0.2 L Troponin I 0.031 C-Reactive Protein 2.5 H NT-Pro-B Natriuret Pep 61 Total Protein 6.9 Albumin 4.0 Globulin 2.9 Albumin/Globulin Ratio 1.4 Procalcitonin Nasal Screen MRSA (PCR) Chlamy pneumoniae PCR Not detected Adenovirus (PCR) Not detected B. pertussis DNA (PCR) Not detected B.parapertussis DNA PCR Not detected Coronavirus OC43 (PCR) Not detected Coronavirus HKU1 (PCR) Not detected Coronavirus 229E (PCR) Not detected SARS-CoV-2 (PCR) Detected H Coronavirus NL63 (PCR) Not detected Human Metapneumovir PCR Not detected Influenza Type A (PCR) Not detected Influenza Type B (PCR) Not detected M. pneumoniae (PCR) Not detected Parainfluenza 1 (PCR) Not detected Parainfluenza 2 (PCR) Not detected Parainfluenza 3 (PCR) Not detected Parainfluenza 4 (PCR) Not detected RSV (PCR) Not detected Entero/Rhino (PCR) Not detected 04/15/21 04/15/21 04/15/21 00:48 00:48 01:50 WBC RBC Hgb Hct MCV MCH MCHC RDW Plt Count Neut % (Auto) Lymph % (Auto) [place] % (Auto) Eos % (Auto) Baso % (Auto) Neut # (Auto) Lymph # (Auto) [place] # (Auto) Eos # (Auto) Baso # (Auto) PT INR APTT D-Dimer ABG pH 7.43 ABG pCO2 36.7 ABG pO2 94 ABG HCO3 24 ABG Total CO2 25 ABG O2 Saturation 98 ABG Base Excess 0.0 FiO2 60 Sodium Potassium Chloride Carbon Dioxide BUN Creatinine Estimated GFR BUN/Creatinine Ratio Glucose Lactate Calcium Magnesium 2.2 Total Bilirubin AST ALT Alkaline Phosphatase Lactate Dehydrogenase Total Creatine Kinase CK-MB (CK-2) CK-MB (CK-2) Rel Index Troponin I 0.038 H C-Reactive Protein NT-Pro-B Natriuret Pep Total Protein Albumin Globulin Albumin/Globulin Ratio Procalcitonin Nasal Screen MRSA (PCR) Chlamy pneumoniae PCR Adenovirus (PCR) B. pertussis DNA (PCR) B.parapertussis DNA PCR Coronavirus OC43 (PCR) Coronavirus HKU1 (PCR) Coronavirus 229E (PCR) SARS-CoV-2 (PCR) Coronavirus NL63 (PCR) Human Metapneumovir PCR Influenza Type A (PCR) Influenza Type B (PCR) M. pneumoniae (PCR) Parainfluenza 1 (PCR) Parainfluenza 2 (PCR) Parainfluenza 3 (PCR) Parainfluenza 4 (PCR) RSV (PCR) Entero/Rhino (PCR) 04/15/21 04/15/21 04/15/21 03:40 04:33 04:33 WBC RBC Hgb Hct MCV MCH MCHC RDW Plt Count Neut % (Auto) Lymph % (Auto) [place] % (Auto) Eos % (Auto) Baso % (Auto) Neut # (Auto) Lymph # (Auto) [place] # (Auto) Eos # (Auto) Baso # (Auto) PT 13.1 H INR 1.2 APTT 32 D-Dimer ABG pH ABG pCO2 ABG pO2 ABG HCO3 ABG Total CO2 ABG O2 Saturation ABG Base Excess FiO2 Sodium 134 L Potassium 3.9 Chloride 103 Carbon Dioxide 24 BUN 18 Creatinine 0.94 Estimated GFR > 60.0 BUN/Creatinine Ratio 19.1 Glucose 127 H Lactate Calcium 7.9 L Magnesium Total Bilirubin 0.9 AST 106 H ALT 93 H Alkaline Phosphatase 47 Lactate Dehydrogenase Total Creatine Kinase CK-MB (CK-2) CK-MB (CK-2) Rel Index Troponin I C-Reactive Protein NT-Pro-B Natriuret Pep Total Protein 6.2 L Albumin 3.5 Globulin 2.7 Albumin/Globulin Ratio 1.3 Procalcitonin Nasal Screen MRSA (PCR) Negative for mrsa Chlamy pneumoniae PCR Adenovirus (PCR) B. pertussis DNA (PCR) B.parapertussis DNA PCR Coronavirus OC43 (PCR) Coronavirus HKU1 (PCR) Coronavirus 229E (PCR) SARS-CoV-2 (PCR) Coronavirus NL63 (PCR) Human Metapneumovir PCR Influenza Type A (PCR) Influenza Type B (PCR) M. pneumoniae (PCR) Parainfluenza 1 (PCR) Parainfluenza 2 (PCR) Parainfluenza 3 (PCR) Parainfluenza 4 (PCR) RSV (PCR) Entero/Rhino (PCR) Assessment & Plan Assessment & Plan narrative: Assessment Acute resp failure COVID 19 pna ARDS possible prob gram neg pna obesity Plan continue supplemental o2 trend ABG TTE continue dexamehtasone, remdesivr and barticinib continue po intake stop IVF goal negative balance dvt ppx trend bmp and cbc monitor UO I do have a low suspciion of a bacterial infeciton, however given his fio2 requiremtns I will add empric coverage CCT 50 min Time Spent With Patient Critical Care time: I spent a total of [] minutes of critical care time on this patient's care today; this time is exclusive of procedural time.
[2021-04-15] MEDS: cefTRIAXone 1,000 MG in SODIUM CHLORIDE 0.9% 100 ML 200 ML IV (13:21)
[2021-04-15] MEDS: AZITHROMYCIN 500 MG in DEXTROSE 5% IN WATER 250 ML IV (13:22)
--- NOTE | 2021-04-15 14:06 | PM.PN.1 ---
Subjective Subjective Date Patient Seen: 04/15/21 Time Patient Seen: 08:00 Interval history: He is seen in his bed. He does not verbally respond. He is proning. He only nods or shakes his head. Exam Vital Signs (past 8 hours): - 04/15/21 06:15 04/15/21 07:55 04/15/21 08:00 Temperature 98.2 F Pulse Rate 78 94 H 80 Respiratory Rate 24 20 21 Blood Pressure 121/79 118/77 Pulse Oximetry 95 97 96 04/15/21 10:15 04/15/21 12:15 04/15/21 13:00 Temperature 97.4 F L Pulse Rate 90 81 84 Respiratory Rate 20 24 27 H Blood Pressure 118/77 120/74 Pulse Oximetry 92 97 94 Fraction of Inspired Oxygen 95 Oxygen Delivery Method Heated High Flow Oxygen Flow Rate 60 Narrative Exam Narrative: General: no acute distress Lungs:?poor air movement Cardio:?regular rate and regular rhythm without murmur Abdomen:? Soft nontender, nondistended, no organomegaly Psych:? avoidant, very flat affect, does not want to speak Objective Labs Result Diagrams: 04/14/21 20:08 04/15/21 04:33 Labs: Laboratory Results - last 24 hr 04/14/21 04/14/21 04/14/21 20:08 20:08 20:08 WBC 6.6 RBC 5.32 Hgb 16.3 Hct 47.3 MCV 88.9 MCH 30.6 MCHC 34.4 RDW 13.8 Plt Count 158 Neut % (Auto) 77.1 H Lymph % (Auto) 13.1 L [place] % (Auto) 9.6 Eos % (Auto) 0.0 L Baso % (Auto) 0.2 Neut # (Auto) 5100 Lymph # (Auto) 900 L [place] # (Auto) 600 Eos # (Auto) 0 Baso # (Auto) 0 PT INR APTT D-Dimer 542 H ABG pH ABG pCO2 ABG pO2 ABG HCO3 ABG Total CO2 ABG O2 Saturation ABG Base Excess FiO2 Sodium Potassium Chloride Carbon Dioxide BUN Creatinine Estimated GFR BUN/Creatinine Ratio Glucose Lactate Calcium Magnesium Total Bilirubin AST ALT Alkaline Phosphatase Lactate Dehydrogenase Total Creatine Kinase CK-MB (CK-2) CK-MB (CK-2) Rel Index Troponin I C-Reactive Protein NT-Pro-B Natriuret Pep Total Protein Albumin Globulin Albumin/Globulin Ratio Procalcitonin 0.14 Nasal Screen MRSA (PCR) Chlamy pneumoniae PCR Adenovirus (PCR) B. pertussis DNA (PCR) B.parapertussis DNA PCR Coronavirus OC43 (PCR) Coronavirus HKU1 (PCR) Coronavirus 229E (PCR) SARS-CoV-2 (PCR) Coronavirus NL63 (PCR) Human Metapneumovir PCR Influenza Type A (PCR) Influenza Type B (PCR) M. pneumoniae (PCR) Parainfluenza 1 (PCR) Parainfluenza 2 (PCR) Parainfluenza 3 (PCR) Parainfluenza 4 (PCR) RSV (PCR) Entero/Rhino (PCR) 04/14/21 04/14/21 04/14/21 20:08 20:08 20:19 WBC RBC Hgb Hct MCV MCH MCHC RDW Plt Count Neut % (Auto) Lymph % (Auto) [place] % (Auto) Eos % (Auto) Baso % (Auto) Neut # (Auto) Lymph # (Auto) [place] # (Auto) Eos # (Auto) Baso # (Auto) PT INR APTT D-Dimer ABG pH ABG pCO2 ABG pO2 ABG HCO3 ABG Total CO2 ABG O2 Saturation ABG Base Excess FiO2 Sodium 132 L Potassium 3.4 Chloride 99 Carbon Dioxide 24 BUN 21 H Creatinine 1.06 Estimated GFR > 60.0 BUN/Creatinine Ratio 19.8 Glucose 120 H Lactate 1.5 Calcium 8.3 L Magnesium Total Bilirubin 1.0 AST 108 H ALT 92 H Alkaline Phosphatase 62 Lactate Dehydrogenase 1078 H Total Creatine Kinase 1551 H CK-MB (CK-2) 3.01 H CK-MB (CK-2) Rel Index 0.2 L Troponin I 0.031 C-Reactive Protein 2.5 H NT-Pro-B Natriuret Pep 61 Total Protein 6.9 Albumin 4.0 Globulin 2.9 Albumin/Globulin Ratio 1.4 Procalcitonin Nasal Screen MRSA (PCR) Chlamy pneumoniae PCR Not detected Adenovirus (PCR) Not detected B. pertussis DNA (PCR) Not detected B.parapertussis DNA PCR Not detected Coronavirus OC43 (PCR) Not detected Coronavirus HKU1 (PCR) Not detected Coronavirus 229E (PCR) Not detected SARS-CoV-2 (PCR) Detected H Coronavirus NL63 (PCR) Not detected Human Metapneumovir PCR Not detected Influenza Type A (PCR) Not detected Influenza Type B (PCR) Not detected M. pneumoniae (PCR) Not detected Parainfluenza 1 (PCR) Not detected Parainfluenza 2 (PCR) Not detected Parainfluenza 3 (PCR) Not detected Parainfluenza 4 (PCR) Not detected RSV (PCR) Not detected Entero/Rhino (PCR) Not detected 04/15/21 04/15/21 04/15/21 00:48 00:48 01:50 WBC RBC Hgb Hct MCV MCH MCHC RDW Plt Count Neut % (Auto) Lymph % (Auto) [place] % (Auto) Eos % (Auto) Baso % (Auto) Neut # (Auto) Lymph # (Auto) [place] # (Auto) Eos # (Auto) Baso # (Auto) PT INR APTT D-Dimer ABG pH 7.43 ABG pCO2 36.7 ABG pO2 94 ABG HCO3 24 ABG Total CO2 25 ABG O2 Saturation 98 ABG Base Excess 0.0 FiO2 60 Sodium Potassium Chloride Carbon Dioxide BUN Creatinine Estimated GFR BUN/Creatinine Ratio Glucose Lactate Calcium Magnesium 2.2 Total Bilirubin AST ALT Alkaline Phosphatase Lactate Dehydrogenase Total Creatine Kinase CK-MB (CK-2) CK-MB (CK-2) Rel Index Troponin I 0.038 H C-Reactive Protein NT-Pro-B Natriuret Pep Total Protein Albumin Globulin Albumin/Globulin Ratio Procalcitonin Nasal Screen MRSA (PCR) Chlamy pneumoniae PCR Adenovirus (PCR) B. pertussis DNA (PCR) B.parapertussis DNA PCR Coronavirus OC43 (PCR) Coronavirus HKU1 (PCR) Coronavirus 229E (PCR) SARS-CoV-2 (PCR) Coronavirus NL63 (PCR) Human Metapneumovir PCR Influenza Type A (PCR) Influenza Type B (PCR) M. pneumoniae (PCR) Parainfluenza 1 (PCR) Parainfluenza 2 (PCR) Parainfluenza 3 (PCR) Parainfluenza 4 (PCR) RSV (PCR) Entero/Rhino (PCR) 04/15/21 04/15/21 04/15/21 03:40 04:33 04:33 WBC RBC Hgb Hct MCV MCH MCHC RDW Plt Count Neut % (Auto) Lymph % (Auto) [place] % (Auto) Eos % (Auto) Baso % (Auto) Neut # (Auto) Lymph # (Auto) [place] # (Auto) Eos # (Auto) Baso # (Auto) PT 13.1 H INR 1.2 APTT 32 D-Dimer ABG pH ABG pCO2 ABG pO2 ABG HCO3 ABG Total CO2 ABG O2 Saturation ABG Base Excess FiO2 Sodium 134 L Potassium 3.9 Chloride 103 Carbon Dioxide 24 BUN 18 Creatinine 0.94 Estimated GFR > 60.0 BUN/Creatinine Ratio 19.1 Glucose 127 H Lactate Calcium 7.9 L Magnesium Total Bilirubin 0.9 AST 106 H ALT 93 H Alkaline Phosphatase 47 Lactate Dehydrogenase Total Creatine Kinase CK-MB (CK-2) CK-MB (CK-2) Rel Index Troponin I C-Reactive Protein NT-Pro-B Natriuret Pep Total Protein 6.2 L Albumin 3.5 Globulin 2.7 Albumin/Globulin Ratio 1.3 Procalcitonin Nasal Screen MRSA (PCR) Negative for mrsa Chlamy pneumoniae PCR Adenovirus (PCR) B. pertussis DNA (PCR) B.parapertussis DNA PCR Coronavirus OC43 (PCR) Coronavirus HKU1 (PCR) Coronavirus 229E (PCR) SARS-CoV-2 (PCR) Coronavirus NL63 (PCR) Human Metapneumovir PCR Influenza Type A (PCR) Influenza Type B (PCR) M. pneumoniae (PCR) Parainfluenza 1 (PCR) Parainfluenza 2 (PCR) Parainfluenza 3 (PCR) Parainfluenza 4 (PCR) RSV (PCR) Entero/Rhino (PCR) PFSH Medical History (Updated 04/15/21 @ 04:55 by CHRISTIANO Cuevas) COVID-19 History of pineal cyst Hyperlipidemia Obesity (BMI 30.0-34.9) Surgical History (Updated 04/15/21 @ 04:55 by CHRISTIANO Cuevas) History of elbow surgery History of repair of anterior cruciate ligament of left knee Family History (Updated 04/15/21 @ 04:56 by CHRISTIANO Cuevas) Mother Diabetes mellitus Hypertension Hypothyroidism Father Aneurysm Social History household members: spouse Assessment & Plan Assessment & Plan narrative: 46M with PMH of obesity and hyperlipidemia admitted for acute hypoxemic respiratory failure secondary to COVID 19 pneumonia. 1. Acute respiratory failure with hypoxia, secondary to COVID-19 pneumonia, severe, present on admission -currently on heated high flow, sat goal >88% -patient education provided regarding acquiring vaccination following recovery from COVID pneumonia.? -respiratory consult PRN, spirometry -patient started on remdesivir, dexamethasone, and baricitinib -albuterol HFA inhaler 2 puffs q.4 hours as needed for cough or shortness of breath -Ativan for increased anxiety due to isolation -blood and sputum cultures pending -repeat trop ordered -heparin 5000 units b.i.d. 2. Hyperlipidemia, chronic, present on admission -continue patient's Lipitor 20 mg 3. Obesity as evidence by BMI of 31.7, acute on chronic, present on admission -consideration will be given for dietary counseling Time Spent With Patient Critical Care time: I spent a total of [] minutes of critical care time on this patient's care today; this time is exclusive of procedural time.
--- NOTE | 2021-04-15 16:29 | CM.DANOTE ---
DCP/Assessment: Patient is a 46yr old male admitted to [facility] with COVID. PCP is Dr. Neena Real. Primary payor is 1) [employer]. Reviewed EMR. CM team did not enter room due to COVID precautions. Patient resides at home with and children. 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 At this time patient requiring heated high flow 02. Anticipate that patient will improve over the next few days. CM team to continue to follow for needs. P: Anticipate home when stable. Patient started on Remdesivir, dexamthasone and baricinib for COVID. Anticipate 5 day course of Remdesivir. CM team to continue to follow. [facility] Discharge Planning/Care Management CM Discharge Assessment Start: 04/15/21 16:26 Freq: Status: Active Protocol: Document 04/15/21 16:26 KJ (Rec: 04/15/21 16:29 [facility] [id number]) Discharge Planning Assessment Assigned Manager Construction MARY ANN Guadalupe Contact Information Mercedez Murray (spouse) # [phone] Advance Directives? No History Provided By Medical Record Prior Living Arrangements House Household Members spouse Type of transporation used prior to Drives own vehicle admit Independent with ADL's Yes Is patient alert and oriented? Yes Caregiver for Another No Barriers to Discharge No Comment COVID positive (+) Discharge Plan Home Transportation Arrangement Family to provide transport Referrals Initiated Other Additional Comment Pending d/c planning needs. Whiteboard Updated in Patient Room with No name and ext. # of Manager Construction Review Status In Process Next Review Type Continued Stay Review
--- NOTE | 2021-04-15 17:47 | PC.NURSE ---
Addendum entered by Letty Sofia R.N. 04/15/21 18:08: pt declined po hydrocodone 1800 dose- Original Note: PT ABLE TO BE WEANED FROM 60L/70% TO 60L/35%- PT SPO2 [id number] and increased to 98% while prone - taking scheduled hydrocodone and prn lorazepam..using urinal well and saline locked x 2 - receiving iv remdesivir and iv abx - nsr rate in the 80's
--- NOTE | 2021-04-15 20:10 | PM.ICURNDS ---
- :: This patient was seen via real time interactive two-way audiovisual telecommunication. Note: Multidisciplinary rounds completed. Patient admitted for acute hypoxemia respiratory failure on HFNC 60/35%. Currently being treated with remdesivir and baricitinib. His oxygenation is improving slowly. Added lasix 20 mg IV BID to seek net negative fluid balance. Check venous duplex upper and lower extremities given elevated D dimer. Case d/w RN and RT. Answered all questions.
[2021-04-15] MEDS: FUROSEMIDE 20 MG/2 ML VIAL IV (21:20)
[2021-04-16] VITALS (36 sets, daily range): BP systolic 112–149; BP diastolic 69–80; PULSE 50–122; RESP 12–39; TEMP 36.3–36.9; O2SAT 88–94
[2021-04-16 05:15] LABS: Alanine Aminotransferase 89 IU/L (<50); Albumin 3.5 g/dL (3.5-5.0); Albumin Globulin Ratio 1.3 (1.0-2.8); Alkaline Phosphatase 58 U/L (38-126); Aspartate Aminotransferase 77 IU/L (17-59); BUN Creatinine Ratio 23.7 (6-22); Bilirubin Total 0.8 mg/dL (0.2-1.3); Blood Urea Nitrogen 22 mg/dL (9-20); Calcium 8.4 mg/dL (8.4-10.2); Carbon Dioxide 31 mmol/L (22-32); Chloride 100 mmol/L (98-107); Estimated Glomerular Filt Rate > 60.0 mL/min (>60); Globulin 2.6 g/dL (1.7-4.1); Glucose 126 mg/dL (70-100); HEMOLYSIS < 15 (0-50); Potassium 4.2 mmol/L (3.4-5.1); Sodium 136 mmol/L (137-145); Total Protein 6.1 g/dL (6.3-8.2)
[2021-04-16] MEDS: PANTOPRAZOLE DR 20 MG TABLET PO (06:43)
--- NOTE | 2021-04-16 09:03 | PM.PN.EICU ---
Subjective Subjective :: This patient was seen via real time interactive two-way audiovisual telecommunication. patient fio2 down to 35% this AM while prone.. now requiring more fio2 given he is supine. Remains on 60L though. tolerating diet Current Medications Current Medications Medications: Home Medications atorvastatin 20 mg tablet 20 mg PO BEDTIME 04/15/21 [History Confirmed 04/15/21] Visit Medications (administered) Generic Name Dose Route Start Last Admin Trade Name Freq PRN Reason Stop Dose Admin Hydrocodone Bitart/Acetaminophen 2 tab 04/15/21 06:00 04/16/21 05:42 Hydrocodone/Acet 5/325 Tablet PO Not Given Q6HR JERAD Dexamethasone 6 mg 04/15/21 09:00 04/15/21 10:05 Dexamethasone 10 Mg/Ml Vial IV 6 mg DAILY JERAD Administration Furosemide 20 mg 04/15/21 21:00 04/15/21 21:20 Furosemide 20 Mg/2 Ml Vial IV 20 mg BID JERAD Administration Heparin Sodium (Porcine) 5,000 unit 04/15/21 01:45 04/15/21 21:20 Heparin 5,000 Unit/Ml Vial SUBCUT 5,000 unit BID JERAD Administration Remdesivir 100 mg/ Sodium 250 mls @ 250 mls/hr 04/15/21 09:00 04/15/21 12:40 Chloride IV 04/18/21 09:59 Infused DAILY JERAD Infusion Ceftriaxone Sodium 1,000 mg/ 100 mls @ 200 mls/hr 04/15/21 12:45 04/15/21 14:00 Sodium Chloride IV Infused Q24H JERAD Infusion Azithromycin 500 mg/ Dextrose 250 mls @ 250 mls/hr 04/15/21 12:45 04/15/21 15:00 IV Infused Q24H JERAD Infusion Lorazepam 0.5 mg 04/15/21 00:26 04/15/21 10:37 Lorazepam 0.5 Mg Tablet PO 0.5 mg Q4H PRN Administration Anxiety Pantoprazole Sodium 20 mg 04/15/21 06:00 04/16/21 06:[address] 20 Mg Tablet PO 20 mg 0600 JERAD Administration Objective Ventilator Parameters: Ventilator Settings FiO2 75 Labs Result Diagrams: 04/14/21 20:08 04/16/21 04:48 Labs: Laboratory Results - last 24 hr 04/16/21 04:48 Sodium 136 L Potassium 4.2 Chloride 100 Carbon Dioxide 31 BUN 22 H Creatinine 0.93 Estimated GFR > 60.0 BUN/Creatinine Ratio 23.7 H Glucose 126 H Calcium 8.4 Total Bilirubin 0.8 AST 77 H ALT 89 H Alkaline Phosphatase 58 Total Protein 6.1 L Albumin 3.5 Globulin 2.6 Albumin/Globulin Ratio 1.3 Exam Vital Signs (past 8 hours): - 04/16/21 01:20 04/16/21 02:00 04/16/21 03:00 Temperature Pulse Rate 78 74 77 Respiratory Rate 22 25 H 23 Blood Pressure 129/77 Pulse Oximetry 91 91 91 04/16/21 03:40 04/16/21 03:44 04/16/21 04:00 Temperature Pulse Rate 75 84 77 Respiratory Rate 23 12 26 H Blood Pressure 123/78 Pulse Oximetry 90 L 90 L 89 L 04/16/21 04:24 04/16/21 05:00 04/16/21 05:42 Temperature 97.3 F L Pulse Rate 82 81 75 Respiratory Rate 17 12 23 Blood Pressure 123/78 123/78 Pulse Oximetry 90 L 92 90 L 04/16/21 06:00 04/16/21 07:00 Temperature Pulse Rate 75 85 Respiratory Rate 27 H 14 Blood Pressure Pulse Oximetry 90 L 91 Fraction of Inspired Oxygen 35 Oxygen Delivery Method Heated High Flow Oxygen Flow Rate 60 Assessment & Plan Assessment & Plan narrative: Acute resp failure COVID 19 pna ARDS possible prob gram neg pna obesity Plan continue supplemental o2 trend ABG TTE continue dexamehtasone, remdesivr and barticinib continue po intake stop IVF goal negative balance dvt ppx trend bmp and cbc monitor UO I do have a low suspciion of a bacterial infeciton, however given his fio2 requiremtns I will add empric coverage CCT 50 min Time Spent With Patient Critical Care time: I spent a total of [] minutes of critical care time on this patient's care today; this time is exclusive of procedural time.
[2021-04-16] MEDS: BARICITINIB 2 MG TABLET 4 MG PO (09:30)
[2021-04-16] MEDS: HEPARIN 5,000 UNIT/ML VIAL 5000 UNIT SUBCUT ×2 (09:31→21:43)
[2021-04-16] MEDS: LORazepam 0.5 MG TABLET PO ×2 (09:31→21:43)
[2021-04-16] MEDS: FUROSEMIDE 20 MG/2 ML VIAL IV ×2 (09:31→21:43)
[2021-04-16] MEDS: CODEINE/GUAIFENESIN LIQUID 5ML UDC 5 ML PO ×2 (09:31→21:43)
[2021-04-16] MEDS: DEXAMETHASONE 10 MG/ML VIAL 6 MG IV (09:31)
[2021-04-16] MEDS: REMDESIVIR 100 MG in SODIUM CHLORIDE 0.9% 230 ML 250 ML IV (10:01)
--- NOTE | 2021-04-16 10:50 | P.PN_ITS ---
Subjective Subjective Date Patient Seen: 04/16/21 Time Patient Seen: 08:00 Interval history: Today he states he is having quite significant coughing. He has proned most of the night. He still has shortness of breath and remains on heated high flow. Exam Vital Signs (past 8 hours): - 04/16/21 03:00 04/16/21 03:40 04/16/21 03:44 Temperature Pulse Rate 77 75 84 Respiratory Rate 23 23 12 Blood Pressure 123/78 Pulse Oximetry 91 90 L 90 L 04/16/21 04:00 04/16/21 04:24 04/16/21 05:00 Temperature 97.3 F L Pulse Rate 77 82 81 Respiratory Rate 26 H 17 12 Blood Pressure 123/78 Pulse Oximetry 89 L 90 L 92 04/16/21 05:42 04/16/21 06:00 04/16/21 07:00 Temperature Pulse Rate 75 75 85 Respiratory Rate 23 27 H 14 Blood Pressure 123/78 Pulse Oximetry 90 L 90 L 91 04/16/21 09:00 Temperature Pulse Rate 115 H Respiratory Rate 24 Blood Pressure Pulse Oximetry 90 L Fraction of Inspired Oxygen 35 Oxygen Delivery Method Heated High Flow Oxygen Flow Rate 60 Narrative Exam Narrative: General: no acute distress Lungs:?poor air movement Cardio:?regular rate and regular rhythm without murmur Abdomen:? Soft nontender, nondistended, no organomegaly Psych:? avoidant, very flat affect Objective Labs Result Diagrams: 04/14/21 20:08 04/16/21 04:48 Labs: Laboratory Results - last 24 hr 04/16/21 04:48 Sodium 136 L Potassium 4.2 Chloride 100 Carbon Dioxide 31 BUN 22 H Creatinine 0.93 Estimated GFR > 60.0 BUN/Creatinine Ratio 23.7 H Glucose 126 H Calcium 8.4 Total Bilirubin 0.8 AST 77 H ALT 89 H Alkaline Phosphatase 58 Total Protein 6.1 L Albumin 3.5 Globulin 2.6 Albumin/Globulin Ratio 1.3 PFSH Medical History (Updated 04/15/21 @ 04:55 by CHRISTIANO Cuevas) COVID-19 History of pineal cyst Hyperlipidemia Obesity (BMI 30.0-34.9) Surgical History (Updated 04/15/21 @ 04:55 by CHRISTIANO Cuevas) History of elbow surgery History of repair of anterior cruciate ligament of left knee Family History (Updated 04/15/21 @ 04:[address] [facility]) Mother Diabetes mellitus Hypertension Hypothyroidism Father Aneurysm Social History household members: spouse Assessment & Plan Assessment & Plan narrative: 46M with PMH of obesity and hyperlipidemia admitted for acute hypoxemic respiratory failure secondary to COVID 19 pneumonia. 1. Acute respiratory failure with hypoxia, secondary to COVID-19 pneumonia, severe, present on admission -currently on heated high flow, sat goal >88% -patient education provided regarding acquiring vaccination following recovery from COVID pneumonia.? -respiratory consult PRN, spirometry -patient started on remdesivir, dexamethasone, and baricitinib -albuterol HFA inhaler 2 puffs q.4 hours as needed for cough or shortness of breath -Ativan for increased anxiety due to isolation -blood and sputum cultures pending -repeat trop ordered -heparin 5000 units b.i.d. 2. Hyperlipidemia, chronic, present on admission -continue patient's Lipitor 20 mg 3. Obesity as evidence by BMI of 31.7, acute on chronic, present on admission -consideration will be given for dietary counseling Time Spent With Patient Critical Care time: I spent a total of [] minutes of critical care time on this patient's care today; this time is exclusive of procedural time.
[2021-04-16] MEDS: cefTRIAXone 1,000 MG in SODIUM CHLORIDE 0.9% 100 ML 200 ML IV (11:34)
[2021-04-16] MEDS: AZITHROMYCIN 500 MG in DEXTROSE 5% IN WATER 250 ML IV (11:34)
--- NOTE | 2021-04-16 12:33 | DI.US.S_ITS ---
PROCEDURE: US PERIPH VENOUS LOW EXTREM BI INDICATIONS: covid protocol TECHNIQUE: Real-time imaging, as well as color and pulse Doppler interrogation, were performed of the deep veins of both legs from the inguinal ligament to the popliteal fossa. COMPARISON: None. FINDINGS: Right: The common femoral, femoral and popliteal veins are normally compressible, and free of intraluminal thrombus. Color and pulse Doppler demonstrate normal phasic intravascular flow. There is normal augmentation response to distal compression maneuver. Left: The common femoral, femoral and popliteal veins are normally compressible, and free of intraluminal thrombus. Color and pulse Doppler demonstrate normal phasic intravascular flow. There is normal augmentation response to distal compression maneuver. IMPRESSION: No evidence of deep vein thrombosis involving either the right or left lower extremities. Dictated by: Nusrat Parks MD, PhD on 04/16/2021 at 12:53 Approved by: Nusrat Parks MD, PhD on 04/16/2021 at 12:54
--- NOTE | 2021-04-16 12:35 | DI.US.S_ITS ---
PROCEDURE: US PERIPH VENOUS UP EXTREM REANNA INDICATIONS: covid protocol TECHNIQUE: Real-time imaging, as well as color and pulse Doppler interrogation, was performed of both upper extremity deep veins from the inferior neck to the antecubital fossa. COMPARISON: None. FINDINGS: Right: The internal jugular veins, visualized portions of the subclavian veins, axillary veins, and brachial veins are free of intraluminal thrombus. Where physically possible, the veins are normally compressible. Color and pulse Doppler demonstrate normal intraluminal flow, with expected phasicity and pulsatility. Additional scanning of the cephalic and basilic veins of the superficial system demonstrate normal compressibility, without thrombus. Left: The internal jugular veins, visualized portions of the subclavian veins, axillary veins, and brachial veins are free of intraluminal thrombus. Where physically possible, the veins are normally compressible. Color and pulse Doppler demonstrate normal intraluminal flow, with expected phasicity and pulsatility. Additional scanning of the cephalic and basilic veins of the superficial system demonstrate normal compressibility, without thrombus. IMPRESSION: No evidence of deep vein thrombosis involving either the right or left lower extremities. Dictated by: Nusrat Parks MD, PhD on 04/16/2021 at 12:52 Approved by: Nusrat Parks MD, PhD on 04/16/2021 at 12:53
--- NOTE | 2021-04-16 14:27 | PC.NURSE ---
PT NOTED TO BE INCREASINGLY TACHYCARDIC 130 BPM- WHILE SITTING ON EDGE OF BED EATING LUNCH- BUT WHILE LYING PRONE POST MEAL HR DECREASED DOWN TO 93 AND SPO2 95% ON 60L/50%- NORMOTENSIVE- CHANGED SCHEDULED HYDROCODONE TO PRN PER PT REQUEST AND MEDICATED EARLIER THIS SHIFT WITH LOW DOSE PO LORAZEPAM WHICH IS HELPFUL TO ALLOW HIM TO RELAX-
--- NOTE | 2021-04-16 16:50 | CM.DPC ---
DCP/continued: Reviewed chart. Patient remains in ICU on 60 liters heated high flow. COVID treatment initiated upon admit. CM team continues to follow closely. P: CM team to assess via telephone when medically appropriate to do so. Anticipate home when stable. MARQUITA
--- NOTE | 2021-04-16 20:31 | PM.ICURNDS ---
- :: This patient was seen via real time interactive two-way audiovisual telecommunication. Note: Multidisciplinary rounds completed. Remains on HFNC 60/50% and tolerating proning. Cont gentle diuresis and supportive care. Case d/w RN and RT.
[2021-04-17] VITALS (29 sets, daily range): BP systolic 94–122; BP diastolic 53–74; PULSE 63–98; RESP 14–34; TEMP 36.3–37; O2SAT 88–95
[2021-04-17 04:40] LABS: Hematocrit 42.6 % (41-53); Hemoglobin 14.8 g/dL (13.5-17.5); Mean Corpuscular HGB Conc 34.8 % (30-36); Mean Corpuscular Hemoglobin 30.9 PG (26-34); Mean Corpuscular Volume 88.7 fL (80-100); Platelet Count 226 X10^3/uL (150-400); Red Cell Distribution Width 13.9 % (11.6-14.8); White Blood Cell Count 8.1 X10^3/uL (4.5-11.0)
[2021-04-17 04:58] LABS: Alanine Aminotransferase 85 IU/L (<50); Albumin 3.5 g/dL (3.5-5.0); Albumin Globulin Ratio 1.4 (1.0-2.8); Alkaline Phosphatase 55 U/L (38-126); Aspartate Aminotransferase 66 IU/L (17-59); BUN Creatinine Ratio 27.1 (6-22); Bilirubin Total 0.8 mg/dL (0.2-1.3); Blood Urea Nitrogen 26 mg/dL (9-20); Calcium 8.2 mg/dL (8.4-10.2); Carbon Dioxide 31 mmol/L (22-32); Chloride 100 mmol/L (98-107); Estimated Glomerular Filt Rate > 60.0 mL/min (>60); Globulin 2.5 g/dL (1.7-4.1); Glucose 125 mg/dL (70-100); HEMOLYSIS < 15 (0-50); Potassium 3.9 mmol/L (3.4-5.1); Sodium 136 mmol/L (137-145)
[2021-04-17] MEDS: PANTOPRAZOLE DR 20 MG TABLET PO (05:46)
[2021-04-17] MEDS: BARICITINIB 2 MG TABLET 4 MG PO (08:01)
[2021-04-17] MEDS: HEPARIN 5,000 UNIT/ML VIAL 5000 UNIT SUBCUT (08:01)
[2021-04-17] MEDS: REMDESIVIR 100 MG in SODIUM CHLORIDE 0.9% 230 ML 250 ML IV (08:01)
[2021-04-17] MEDS: FUROSEMIDE 20 MG/2 ML VIAL IV ×2 (08:01→10:49)
[2021-04-17] MEDS: DEXAMETHASONE 10 MG/ML VIAL 6 MG IV (08:01)
[2021-04-17] MEDS: CODEINE/GUAIFENESIN LIQUID 5ML UDC 5 ML PO ×2 (08:22→18:19)
--- NOTE | 2021-04-17 10:15 | DI.RAD.S_ITS ---
PROCEDURE: XR CHEST 1V INDICATIONS: COVID, on high flow NC TECHNIQUE: One view of the chest was acquired. COMPARISON: [facility], CT, CT ANGIO CHEST PE PROTOCOL, 04/14/2021, 21:36. [facility], CR, XR CHEST 1V, 04/14/2021, 20:28. FINDINGS: Surgical changes and devices: None. Lungs and pleura: Low lung volumes are noted. This causes a crowded appearance to the lung markings and limits evaluation. Worsening interstitial infiltrates are seen, which are more prominent inferiorly. On this semiupright portable chest examination, no large pneumothorax or large pleural effusions are seen. Mediastinum: Cardiac and mediastinal silhouettes are partially obscured, yet are regarded to be stable. Bones and chest wall: No suspicious bony lesions. Overlying soft tissues appear unremarkable. IMPRESSION: Worsening interstitial infiltrates are seen, which are consistent with the known clinical history of worsening COVID pneumonia. Dictated by: Willie Brown M.D. on 04/17/2021 at 9:51 Approved by: Willie Brown M.D. on 04/17/2021 at 9:52
--- NOTE | 2021-04-17 10:26 | PM.PN.EICU ---
Subjective Subjective :: This patient was seen via real time interactive two-way audiovisual telecommunication. patient fio2 requirements increasing. now at 80%. self proning at night, and has good PO intake. XR pending Current Medications Current Medications Medications: Home Medications atorvastatin 20 mg tablet 20 mg PO BEDTIME 04/15/21 [History Confirmed 04/15/21] Visit Medications (administered) Generic Name Dose Route Start Last Admin Trade Name Freq PRN Reason Stop Dose Admin Dexamethasone 6 mg 04/15/21 09:00 04/17/21 08:01 Dexamethasone 10 Mg/Ml Vial IV 6 mg DAILY JERAD Administration Guaifenesin/Codeine Phosphate 5 ml 04/16/21 08:30 04/17/21 08:22 Codeine/Guaifenesin Liquid 5ml Udc PO 5 ml Q6H PRN Administration Cough Heparin Sodium (Porcine) 5,000 unit 04/15/21 01:45 04/17/21 08:01 Heparin 5,000 Unit/Ml Vial SUBCUT 5,000 unit BID JERAD Administration Remdesivir 100 mg/ Sodium 250 mls @ 250 mls/hr 04/15/21 09:00 04/17/21 08:01 Chloride IV 04/18/21 09:59 250 mls/hr DAILY JERAD Administration Ceftriaxone Sodium 1,000 mg/ 100 mls @ 200 mls/hr 04/15/21 12:45 04/16/21 13:51 Sodium Chloride IV 04/19/21 13:14 Infused Q24H JERAD Infusion Azithromycin 500 mg/ Dextrose 250 mls @ 250 mls/hr 04/15/21 12:45 04/16/21 13:26 IV 04/17/21 13:44 Infused Q24H JERAD Infusion Lorazepam 0.5 mg 04/15/21 00:26 04/16/21 21:43 Lorazepam 0.5 Mg Tablet PO 0.5 mg Q4H PRN Administration Anxiety Pantoprazole Sodium 20 mg 04/15/21 06:00 04/17/21 05:[address] 20 Mg Tablet PO 20 mg 0600 JERAD Administration Objective Ventilator Parameters: Ventilator Settings FiO2 75 Labs Result Diagrams: 04/17/21 04:30 04/17/21 04:30 Labs: Laboratory Results - last 24 hr 04/17/21 04/17/21 04:30 04:30 WBC 8.1 RBC 4.80 Hgb 14.8 Hct 42.6 MCV 88.7 MCH 30.9 MCHC 34.8 RDW 13.9 Plt Count 226 Sodium 136 L Potassium 3.9 Chloride 100 Carbon Dioxide 31 BUN 26 H Creatinine 0.96 Estimated GFR > 60.0 BUN/Creatinine Ratio 27.1 H Glucose 125 H Calcium 8.2 L Total Bilirubin 0.8 AST 66 H ALT 85 H Alkaline Phosphatase 55 Total Protein 6.0 L Albumin 3.5 Globulin 2.5 Albumin/Globulin Ratio 1.4 Exam Vital Signs (past 8 hours): - 04/17/21 03:00 04/17/21 03:34 04/17/21 03:58 Temperature Pulse Rate 69 67 77 Respiratory Rate 22 20 17 Blood Pressure 122/74 118/69 Pulse Oximetry 93 93 92 04/17/21 04:00 04/17/21 04:24 04/17/21 05:00 Temperature 97.3 F L Pulse Rate 73 72 65 Respiratory Rate 16 17 27 H Blood Pressure 118/69 Pulse Oximetry 93 93 88 L 04/17/21 05:36 04/17/21 05:41 04/17/21 05:42 Temperature Pulse Rate 69 63 Respiratory Rate 24 26 H Blood Pressure 118/69 Pulse Oximetry 89 L 90 L 90 L 04/17/21 06:00 04/17/21 08:00 04/17/21 08:51 Temperature 98.3 F Pulse Rate 69 98 H 94 H Respiratory Rate 26 H 27 H 24 Blood Pressure 121/67 121/74 Pulse Oximetry 89 L 88 L 92 Fraction of Inspired Oxygen 60 Oxygen Delivery Method Heated High Flow Oxygen Flow Rate 60 Narrative Exam Narrative: surrogate for exam is primary team Assessment & Plan Assessment & Plan narrative: COVID 19 pna ARDS possible prob gram neg pna obesity Plan continue supplemental o2 encourage self proning trend ABG TTE continue dexamehtasone, remdesivr and barticinib continue po intake stop IVF goal negative balance ( lasix increased) dvt ppx trend bmp and cbc monitor UO I do have a low suspciion of a bacterial infeciton, however given his fio2 requiremtns I will add empric coverage CCT 50 min Time Spent With Patient Critical Care time: I spent a total of [] minutes of critical care time on this patient's care today; this time is exclusive of procedural time.
[2021-04-17] MEDS: AZITHROMYCIN 500 MG in DEXTROSE 5% IN WATER 250 ML IV (10:48)
[2021-04-17] MEDS: cefTRIAXone 1,000 MG in SODIUM CHLORIDE 0.9% 100 ML 200 ML IV (12:13)
--- NOTE | 2021-04-17 13:31 | P.PN_ITS ---
Subjective Subjective Date Patient Seen: 04/17/21 Time Patient Seen: 13:31 Interval history: Somewhat improved cought. He has proned most of the night. He still has shortness of breath and remains on heated high flow. Symptoms he states are quite similar today. Denies chest pain, abdominal pain, nausea, vomiting. Exam Vital Signs (past 8 hours): - 04/17/21 05:36 04/17/21 05:41 04/17/21 05:42 Temperature Pulse Rate 69 63 Respiratory Rate 24 26 H Blood Pressure 118/69 Pulse Oximetry 89 L 90 L 90 L 04/17/21 06:00 04/17/21 08:00 04/17/21 08:51 Temperature 98.3 F Pulse Rate 69 98 H 94 H Respiratory Rate 26 H 27 H 24 Blood Pressure 121/67 121/74 Pulse Oximetry 89 L 88 L 92 04/17/21 10:50 04/17/21 11:40 04/17/21 13:20 Temperature 98.2 F Pulse Rate 88 91 H 94 H Respiratory Rate 24 14 24 Blood Pressure 121/70 100/70 122/68 Pulse Oximetry 92 95 90 L Fraction of Inspired Oxygen 100 Oxygen Delivery Method Heated High Flow Oxygen Flow Rate 60 Narrative Exam Narrative: General: no acute distress, sitting up in hospital bed eating lunch. Lungs:?poor air movement, no obvious wheezing rhonchi or rales Cardio:?regular rate and regular rhythm without murmur Abdomen:? Soft nontender, nondistended, no organomegaly Psych:? avoidant, very flat affect, short responses Objective Labs Result Diagrams: 04/17/21 04:30 04/17/21 04:30 Labs: Laboratory Results - last 24 hr 04/17/21 04/17/21 04:30 04:30 WBC 8.1 RBC 4.80 Hgb 14.8 Hct 42.6 MCV 88.7 MCH 30.9 MCHC 34.8 RDW 13.9 Plt Count 226 Sodium 136 L Potassium 3.9 Chloride 100 Carbon Dioxide 31 BUN 26 H Creatinine 0.96 Estimated GFR > 60.0 BUN/Creatinine Ratio 27.1 H Glucose 125 H Calcium 8.2 L Total Bilirubin 0.8 AST 66 H ALT 85 H Alkaline Phosphatase 55 Total Protein 6.0 L Albumin 3.5 Globulin 2.5 Albumin/Globulin Ratio 1.4 [facility] Medical History (Updated 04/15/21 @ 04:55 [facility] COVID-19 History of pineal cyst Hyperlipidemia Obesity (BMI 30.0-34.9) Surgical History (Updated 04/15/21 @ 04:55 by DALLIN Cue[facility]) History of elbow surgery History of repair of anterior cruciate ligament of left knee Family History (Updated 04/15/21 @ 04:56 [facility] Mother Diabetes mellitus Hypertension Hypothyroidism Father Aneurysm Social History household members: spouse Assessment & Plan Assessment & Plan narrative: 46M with PMH of obesity and hyperlipidemia admitted for acute hypoxemic respiratory failure secondary to COVID 19 pneumonia. 1. Acute respiratory failure with hypoxia, secondary to COVID-19 pneumonia, severe, present on admission -currently on heated high flow, sat goal >88% -patient education provided regarding acquiring vaccination following recovery from COVID pneumonia.? -respiratory consult PRN, spirometry -patient started on remdesivir, dexamethasone, and baricitinib -albuterol HFA inhaler 2 puffs q.4 hours as needed for cough or shortness of breath -Ativan for increased anxiety due to isolation -blood and sputum cultures pending 2. Hyperlipidemia, chronic, present on admission -continue patient's Lipitor 20 mg 3. Obesity as evidence by BMI of 31.7, acute on chronic, present on admission -consideration will be given for dietary counseling I spent 30 minutes providing critical care management this patient. This excludes time spent in performing separately billed procedures. Time Spent With Patient Critical Care time: I spent a total of [] minutes of critical care time on this patient's care today; this time is exclusive of procedural time.
[2021-04-17] MEDS: FUROSEMIDE 20 MG/2 ML VIAL 40 MG IV (16:33)
--- NOTE | 2021-04-17 17:43 | PC.NURSE ---
Rec'd pt in bed, prone, on HHFNC 60L 60% FIo2 with SPO2 90-91%. Pt is AAO x4 with flat affect. Pt is requiring add'l supplemental O2 to keep sats greater than 88% during minimal exertion such as sitting up to EOB for meals. Sats decrease to 85%. Pt is unable to recover sats with rest/deep breathing and thus FIO2 is temporarily increased to 70-80% with activity and decreased when side lying or prone. Pt has been side lying right and left today and sats increase to 94% (on 60L/ 60%) in these positions. He is tolerating a general diet. Denies pain. Tachypneic with RR 20s-30s. LBM 10-31. Pt states he is unsure if he feels constipated but is willing to take a stool softener. He is unsure if he would like to drink prune juice but there is some at the bedside should he decide to drink it. Pt is voiding per urinal. Denies any needs.
[2021-04-17] MEDS: DOCUSATE 100 MG CAPSULE PO (20:23)
[2021-04-17] MEDS: SODIUM CHLORIDE 0.9% FLUSH 10 ML IV (20:23)
[2021-04-17] MEDS: LORazepam 0.5 MG TABLET PO (20:23)
--- NOTE | 2021-04-17 20:39 | PM.ICURNDS ---
- Note: Case d/w pts bedside nurse and Deb Diop (DAMARIS). Pt w ARDS from COVID. He is on HFNC 80%, 60L w RR in low 20s. He is on remdesivir/decadron/baricitinib. He is on SQ heparin 5000u BID. He weighs 109 kg. I would recommend changing SQ heparin to lovenox 40 mg SQ BID for DVT prophylaxis
[2021-04-17] MEDS: ENOXAPARIN 40 MG/0.4 ML SYRINGE SUBCUT (22:28)
[2021-04-18] VITALS (18 sets, daily range): BP systolic 102–116; BP diastolic 57–88; PULSE 57–92; RESP 17–27; TEMP 36.1–37.1; O2SAT 89–98
--- NOTE | 2021-04-18 00:14 | PC.NURSE ---
Addendum entered by Claudia Ojeda R.N. 04/18/21 06:22: Patient has slept prone throughout the night, SpO2 90-96%, RR 20-28, minimal coughing. SR 60s-70s. Original Note: 0000-Patient is currently sleeping in prone position, SpO2 >90% on HHFNC 60L/80%, SR 60s-70s. PO Ativan given at HS for anxiety denied pain.
[2021-04-18] MEDS: PANTOPRAZOLE DR 20 MG TABLET PO (06:08)
[2021-04-18] MEDS: REMDESIVIR 100 MG in SODIUM CHLORIDE 0.9% 230 ML 250 ML IV (08:07)
[2021-04-18] MEDS: ENOXAPARIN 40 MG/0.4 ML SYRINGE SUBCUT ×2 (08:07→20:55)
[2021-04-18] MEDS: DOCUSATE 100 MG CAPSULE PO ×2 (08:08→20:55)
[2021-04-18] MEDS: FUROSEMIDE 20 MG/2 ML VIAL 40 MG IV ×2 (08:08→16:58)
[2021-04-18] MEDS: BARICITINIB 2 MG TABLET 4 MG PO (08:08)
[2021-04-18] MEDS: DEXAMETHASONE 10 MG/ML VIAL 6 MG IV (08:08)
[2021-04-18] MEDS: SODIUM CHLORIDE 0.9% FLUSH 10 ML IV ×2 (08:09→20:55)
--- NOTE | 2021-04-18 09:49 | PC.NURSE ---
Rec'd pt on 60L and 80% FIO2 via HHFNC. Pt is prone and SPO2 94-95%. RT decreased FIO2 to 70% around 0730. Pt sat up to EOB for breakfast and SPO2 decreased to 85%. Administered 100% O2 flush x2 with temporary improvement to 88%, non sustained. Increased FIO2 to 80% resulting in SPO2 88-91% while sitting up and eating. Pt denies dyspnea. RR 22-29. Reported to [employer] consultant and hospitalist on rounds.
[2021-04-18] MEDS: cefTRIAXone 1,000 MG in SODIUM CHLORIDE 0.9% 100 ML 200 ML IV (11:49)
--- NOTE | 2021-04-18 14:13 | P.TELICUPN_ITS ---
Subjective Subjective :: This patient was seen via real time interactive two-way audiovisual telecommunication. patients fio2 requiremetns worsneing today. XR reviewed - also clearly worse from last imaging. Current Medications Current Medications Medications: Home Medications atorvastatin 20 mg tablet 20 mg PO BEDTIME 04/15/21 [History Confirmed 04/15/21] Visit Medications (administered) Generic Name Dose Route Start Last Admin Trade Name Freq PRN Reason Stop Dose Admin Dexamethasone 6 mg 04/15/21 09:00 04/18/21 08:08 Dexamethasone 10 Mg/Ml Vial IV 6 mg DAILY JERAD Administration Docusate Sodium 100 mg 04/17/21 21:00 04/18/21 08:08 Docusate 100 Mg Capsule PO 100 mg BID JERAD Administration Enoxaparin Sodium 40 mg 04/17/21 21:00 04/18/21 08:07 Enoxaparin 40 Mg/0.4 Ml Syringe SUBCUT 40 mg BID JERAD Administration Furosemide 40 mg 04/17/21 16:00 04/18/21 08:08 Furosemide 20 Mg/2 Ml Vial IV 40 mg 0900,1600 JERAD Administration Guaifenesin/Codeine Phosphate 5 ml 04/16/21 08:30 04/17/21 18:19 Codeine/Guaifenesin Liquid 5ml Udc PO 5 ml Q6H PRN Administration Cough Ceftriaxone Sodium 1,000 mg/ 100 mls @ 200 mls/hr 04/15/21 12:45 04/18/21 11:49 Sodium Chloride IV 04/19/21 13:14 200 mls/hr Q24H JERAD Administration Lorazepam 0.5 mg 04/15/21 00:26 04/17/21 20:23 Lorazepam 0.5 Mg Tablet PO 0.5 mg Q4H PRN Administration Anxiety Pantoprazole Sodium 20 mg 04/15/21 06:00 04/18/21 06:[address] 20 Mg Tablet PO 20 mg 0600 JERAD Administration Sodium Chloride 10 ml 04/17/21 21:00 04/18/21 08:09 Sodium Chloride 0.9% Flush IV 10 ml BID JERAD Administration Objective Ventilator Parameters: Ventilator Settings FiO2 75 Labs Result Diagrams: 04/17/21 04:30 04/17/21 04:30 Exam Vital Signs (past 8 hours): - 04/18/21 07:38 04/18/21 08:00 04/18/21 09:45 Temperature 98.3 F Pulse Rate 68 86 68 Respiratory Rate 22 24 24 Blood Pressure 114/70 106/66 106/68 Pulse Oximetry 96 92 90 L 04/18/21 10:35 04/18/21 11:51 04/18/21 11:56 Temperature 98.2 F Pulse Rate 68 68 Respiratory Rate 20 20 Blood Pressure 114/64 116/69 Pulse Oximetry 95 97 98 04/18/21 13:59 Temperature Pulse Rate 92 H Respiratory Rate 24 Blood Pressure 116/88 Pulse Oximetry 92 Fraction of Inspired Oxygen 80 Oxygen Delivery Method Heated High Flow Oxygen Flow Rate 60 Assessment & Plan Assessment & Plan narrative: [address] [address] Teleintensivist Progress Note Patient: Jesus Murray MR#: [id number] : 1975 Acct:[id number] Age/Sex: 46 / M ? Date of Service: 04/15/21 Provider:?Devyn Zuniga MD Subjective Subjective :: This patient was seen via real time interactive two-way audiovisual telecommunication. patient fio2 requirements increasing. now at 80%. self proning at night, and has good PO intake. XR pending Current Medications Current Medications Medications: Home Medications atorvastatin 20 mg tablet 20 mg PO BEDTIME 04/15/21 [History Confirmed 04/15/21] Visit Medications (administered) Generic Name Dose Route Start Last Admin ? Trade Name Freq? PRN Reason Stop Dose Admin Dexamethasone ?6 mg ?04/15/21 09:00 ?04/17/21 08:01 ? Dexamethasone 10 Mg/Ml Vial ?IV ? ?6 mg ? ?DAILY JERAD ? ?Administration Guaifenesin/Codeine Phosphate ?5 ml ?04/16/21 08:30 ?04/17/21 08:22 ? Codeine/Guaifenesin Liquid 5ml Udc ?PO ? ?5 ml ? ?Q6H PRN ? ?Administration ? ?Cough ? ? Heparin Sodium (Porcine) ?5,000 unit ?04/15/21 01:45 ?04/17/21 08:01 ? Heparin 5,000 Unit/Ml Vial ?SUBCUT ? ?5,000 unit ? ?BID JERAD ? ?Administration Remdesivir 100 mg/ Sodium ?250 mls @ 250 mls/hr ?04/15/21 09:00 ?04/17/21 08:01 ? Chloride ?IV ?04/18/21 09:59 ?250 mls/hr ? ?DAILY JERAD ? ?Administration Ceftriaxone Sodium 1,000 mg/D ?100 mls @ 200 mls/hr ?04/15/21 12:45 ?04/16/21 13:51 ? Sodium Chloride ?IV ?04/19/21 13:14 ?Infused ? ?Q24H JERAD ? ?Infusion Azithromycin 500 mg/ Dextrose ?250 mls @ 250 mls/hr ?04/15/21 12:45 ?04/16/21 13:26 ? ?IV ?04/17/21 13:44 ?Infused ? ?Q24H SCHB ? ?Infusion Lorazepam ?0.5 mg ?04/15/21 00:26 ?04/16/21 21:43 ? Lorazepam 0.5 Mg Tablet ?PO ? ?0.5 mg ? ?Q4H PRN ? ?Administration ? ?Anxiety ? ? Pantoprazole Sodium ?20 mg ?04/15/21 06:00 ?04/17/21 05:46 ? Pantoprazole Dr 20 Mg Tablet ?PO ? ?20 mg ? ?0600 JERAD ? ?Administration Objective Ventilator Parameters:?Ventilator Settings FiO2? 75? Labs Result Diagrams: 04/17/21 04:30? 04/17/21 04:30? Labs: Laboratory Results - last 24 hr ? 04/17/21 04/17/21 ? 04:30 04:30 WBC ? ?8.1 RBC ? ?4.80 Hgb ? ?14.8 Hct ? ?42.6 MCV ? ?88.7 MCH ? ?30.9 MCHC ? ?34.8 RDW ? ?13.9 Plt Count ? ?226 SodiumB ?136 L ? Potassium ?3.9 ? Chloride ?100 ? Carbon Dioxide ?31 ? BUN ?26 H ? Creatinine ?0.96 ? Estimated GFRB ?> 60.0 ? BUN/Creatinine Ratio ?27.1 H ? Glucose ?125 H ? Calcium ?8.2 L ? Total Bilirubin ?0.8 ? AST ?66 H ? ALT ?85 H ? Alkaline Phosphatase ?55 ? Total Protein ?6.0 L ? Albumin ?3.5 ? Globulin ?2.5 ? Albumin/Globulin Ratio ?1.4 ? Exam Vital Signs (past 8 hours): - ? 04/17/21 03:00 04/17/21 03:34 04/17/21 03:58 Temperature ? ? ? Pulse Rate 69 67 77 Respiratory Rate 22 20 17 Blood Pressure ? 122/74 118/69 Pulse Oximetry 93 93B 92 ? 04/17/21 04:00 04/17/21 04:24 04/17/21 05:00 Temperature ? 97.3 F L ? Pulse Rate 73B 72 65 Respiratory Rate 16 17 27 H Blood Pressure ? 118/69 ? Pulse Oximetry 93 93 88 L ? 04/17/21 05:36 04/17/21 05:41 04/17/21 05:42 Temperature ? ? ? Pulse Rate 69 63 ? Respiratory Rate 24B 26 H ? Blood Pressure 118/69 ? ? Pulse Oximetry 89 L 90 L 90 L ? 04/17/21 06:00 04/17/21 08:00 04/17/21 08:51 Temperature ? 98.3 F ? Pulse Rate 69 98 H 94 H Respiratory Rate 26 H 27 H 24 Blood Pressure ? 121/67 121/74 Pulse Oximetry 89 L 88 L 92 Fraction of Inspired Oxygen ? 60? Oxygen Delivery Method? Heated High Flow? Oxygen Flow Rate? 60? ARDS possible prob gram neg pna obesity Plan continue supplemental o2 encourage self proning trend ABG TTE on dexamehtasone, remdesivr and barticinib continue po intake stop IVF goal negative balance ( lasix increased) dvt ppx trend bmp and cbc monitor UO I do have a low suspciion of a bacterial infeciton, however given his fio2 requiremtns I will add empric coverage his clinical course seems to be wrosening. I am concerned he will soon require mechanical ventilation. CCT 50 min Time Spent With Patient Critical Care time: I spent a total of [] minutes of critical care time on this patient's care today; this time is exclusive of procedural time.
--- NOTE | 2021-04-18 15:18 | PM.PN.1 ---
Subjective Subjective Date Patient Seen: 04/18/21 Time Patient Seen: 15:18 Interval history: Somewhat improved cough. He has proned most of the night. He still has shortness of breath and remains on heated high flow. Symptoms he states are quite similar today. Denies chest pain, abdominal pain, nausea, vomiting. Exam Vital Signs (past 8 hours): - 04/18/21 07:38 04/18/21 08:00 04/18/21 09:45 Temperature 98.3 F Pulse Rate 68 86 68 Respiratory Rate 22 24 24 Blood Pressure 114/70 106/66 106/68 Pulse Oximetry 96 92 90 L 04/18/21 10:35 04/18/21 11:51 04/18/21 11:56 Temperature 98.2 F Pulse Rate 68 68 Respiratory Rate 20 20 Blood Pressure 114/64 116/69 Pulse Oximetry 95 97 98 04/18/21 13:59 Temperature Pulse Rate 92 H Respiratory Rate 24 Blood Pressure 116/88 Pulse Oximetry 92 Fraction of Inspired Oxygen 80 Oxygen Delivery Method Heated High Flow Oxygen Flow Rate 60 Narrative Exam Narrative: General: no acute distress, sitting up in hospital bed eating lunch. Lungs:?poor air movement, no obvious wheezing rhonchi or rales Cardio:?regular rate and regular rhythm without murmur Abdomen:? Soft nontender, nondistended, no organomegaly Psych:? avoidant, very flat affect, short responses Objective Labs Result Diagrams: 04/17/21 04:30 04/17/21 04:30 [facility] Medical History (Updated 04/15/21 @ 04:55 by CHRISTIANO Cuevas) COVID-19 History of pineal cyst Hyperlipidemia Obesity (BMI 30.0-34.9) Surgical History (Updated 04/15/21 @ 04:55 by CHRISTIANO Cuevas) History of elbow surgery History of repair of anterior cruciate ligament of left knee Family History (Updated 04/15/21 @ 04:56 by CHRISTIANO Cuevas) Mother Diabetes mellitus Hypertension Hypothyroidism Father Aneurysm Social History household members: spouse Assessment & Plan Assessment & Plan narrative: 46M with PMH of obesity and hyperlipidemia admitted for acute hypoxemic respiratory failure secondary to COVID 19 pneumonia. 1. Acute respiratory failure with hypoxia, secondary to COVID-19 pneumonia, severe, present on admission -currently on heated high flow, sat goal >88% -patient education provided regarding acquiring vaccination following recovery from COVID pneumonia.? -respiratory consult PRN, spirometry -patient started on remdesivir, dexamethasone, and baricitinib -albuterol HFA inhaler 2 puffs q.4 hours as needed for cough or shortness of breath -Ativan for increased anxiety due to isolation -blood and sputum cultures pending 2. Hyperlipidemia, chronic, present on admission -continue patient's Lipitor 20 mg 3. Obesity as evidence by BMI of 31.7, acute on chronic, present on admission -consideration will be given for dietary counseling I spent 30 minutes providing critical care management this patient.? This excludes time spent in performing separately billed procedures. Time Spent With Patient Critical Care time: I spent a total of [] minutes of critical care time on this patient's care today; this time is exclusive of procedural time.
[2021-04-18 15:40] LABS: Add Manual Diff / Slide Review NO; Basophils Absolute Auto 0 /uL (0-100); Basophils Percent Auto 0.3 % (0-2); Eosinophils Absolute Auto 0 /uL (0-450); Hematocrit 42.5 % (41-53); Hemoglobin 14.7 g/dL (13.5-17.5); Lymphocytes Absolute Auto 500 /uL (1100-4500); Lymphocytes Percent Auto 7.1 % (25-40); Mean Corpuscular HGB Conc 34.6 % (30-36); Mean Corpuscular Hemoglobin 30.9 PG (26-34); Mean Corpuscular Volume 89.4 fL (80-100); Monocytes Absolute Auto 600 /uL (0-900); Neutrophils Absolute Auto 6300 /uL (1500-7000); Neutrophils Percent Auto 84.6 % (50-75); Platelet Count 274 X10^3/uL (150-400); Red Blood Cell Count 4.76 X10^6/uL (4.5-5.9); Red Cell Distribution Width 13.7 % (11.6-14.8); White Blood Cell Count 7.5 X10^3/uL (4.5-11.0)
[2021-04-18 15:57] LABS: BUN Creatinine Ratio 36.5 (6-22); Blood Urea Nitrogen 31 mg/dL (9-20); Calcium 8.4 mg/dL (8.4-10.2); Carbon Dioxide 29 mmol/L (22-32); Chloride 96 mmol/L (98-107); Estimated Glomerular Filt Rate > 60.0 mL/min (>60); Glucose 183 mg/dL (70-100); Potassium 3.7 mmol/L (3.4-5.1); Sodium 134 mmol/L (137-145)
[2021-04-18 15:58] LABS: HEMOLYSIS 51 (0-50)
[2021-04-18 16:24] LABS: D Dimer 781 ng/mL (<230)
--- NOTE | 2021-04-18 20:25 | PM.ICURNDS ---
- Note: Pt discussed on rounds with bedside nurse and RT. Pt remains on HFNC 60L 80%, RR in 20s, intermittent anxiety per nursing -> can use precedex if needed. Otherwise cont current care. CCT 15 min
[2021-04-18] MEDS: CODEINE/GUAIFENESIN LIQUID 5ML UDC 5 ML PO (20:55)
[2021-04-19] VITALS (18 sets, daily range): BP systolic 87–122; BP diastolic 55–73; PULSE 55–91; RESP 13–25; TEMP 36.2–37.1; O2SAT 88–99
[2021-04-19] MEDS: PANTOPRAZOLE DR 20 MG TABLET PO (05:44)
--- NOTE | 2021-04-19 06:18 | PC.NURSE ---
Shift Note-Patient slept proned all night from 2200 to 0600, SpO2 >94%, desats to 87% while sitting at side of bed, RR mostly <20, denies dyspnea, codeine cough elixer given at HS.
[2021-04-19] MEDS: ENOXAPARIN 40 MG/0.4 ML SYRINGE SUBCUT ×2 (09:06→20:56)
[2021-04-19] MEDS: BARICITINIB 2 MG TABLET 4 MG PO (09:06)
[2021-04-19] MEDS: DOCUSATE 100 MG CAPSULE PO ×2 (09:06→20:57)
[2021-04-19] MEDS: FUROSEMIDE 20 MG/2 ML VIAL 40 MG IV (09:06)
[2021-04-19] MEDS: DEXAMETHASONE 10 MG/ML VIAL 6 MG IV (09:06)
[2021-04-19] MEDS: SODIUM CHLORIDE 0.9% FLUSH 10 ML IV ×2 (09:07→20:58)
--- NOTE | 2021-04-19 09:52 | DI.RAD.S_ITS ---
PROCEDURE: XR CHEST 1V INDICATIONS: COVID - worsening hypoxemia TECHNIQUE: One view of the chest was acquired. COMPARISON: [facility], CT, CT ANGIO CHEST PE PROTOCOL, 04/14/2021, 21:36. [facility], CR, XR CHEST 1V, 04/14/2021, 20:28. [facility], CR, XR CHEST 1V, 04/17/2021, 10:22. FINDINGS: Surgical changes and devices: None. Lungs and pleura: Bilateral interstitial infiltrates are seen, which are similar to the prior examination. There is a slightly better inspiratory result on the current study than on the 04/17/2021 examination. No pneumothorax or large pleural effusion can be seen. Mediastinum: Mediastinal contours appear normal. Heart size is normal. Bones and chest wall: No suspicious bony lesions. Overlying soft tissues appear unremarkable. IMPRESSION: Bilateral interstitial infiltrates are seen, which are similar to the prior chest plain film. Dictated by: Willie Brown M.D. on 04/19/2021 at 9:37 Approved by: Willie Brown M.D. on 04/19/2021 at 9:38
[2021-04-19] MEDS: REMDESIVIR 100 MG in SODIUM CHLORIDE 0.9% 230 ML 250 ML IV (10:58)
[2021-04-19 12:33] LABS: Add Manual Diff / Slide Review NO; Basophils Absolute Auto 0 /uL (0-100); Basophils Percent Auto 0.2 % (0-2); Eosinophils Absolute Auto 0 /uL (0-450); Eosinophils Percent Auto 0.1 % (2-4); Hematocrit 42.7 % (41-53); Hemoglobin 14.7 g/dL (13.5-17.5); Lymphocytes Absolute Auto 800 /uL (1100-4500); Lymphocytes Percent Auto 6.5 % (25-40); Mean Corpuscular HGB Conc 34.4 % (30-36); Mean Corpuscular Hemoglobin 30.8 PG (26-34); Mean Corpuscular Volume 89.5 fL (80-100); Monocytes Absolute Auto 1100 /uL (0-900); Monocytes Percent Auto 8.8 % (3-14); Neutrophils Absolute Auto 10300 /uL (1500-7000); Neutrophils Percent Auto 84.4 % (50-75); Platelet Count 322 X10^3/uL (150-400); Red Blood Cell Count 4.77 X10^6/uL (4.5-5.9); Red Cell Distribution Width 13.8 % (11.6-14.8); White Blood Cell Count 12.2 X10^3/uL (4.5-11.0)
[2021-04-19 12:53] LABS: Alanine Aminotransferase 237 IU/L (<50); Albumin 3.7 g/dL (3.5-5.0); Albumin Globulin Ratio 1.4 (1.0-2.8); Alkaline Phosphatase 67 U/L (38-126); Aspartate Aminotransferase 134 IU/L (17-59); BUN Creatinine Ratio 26.2 (6-22); Blood Urea Nitrogen 33 mg/dL (9-20); Calcium 8.5 mg/dL (8.4-10.2); Carbon Dioxide 36 mmol/L (22-32); Chloride 95 mmol/L (98-107); Estimated Glomerular Filt Rate > 60.0 mL/min (>60); Globulin 2.7 g/dL (1.7-4.1); Glucose 125 mg/dL (70-100); HEMOLYSIS < 15 (0-50); Potassium 3.3 mmol/L (3.4-5.1); Sodium 137 mmol/L (137-145); Total Protein 6.4 g/dL (6.3-8.2)
[2021-04-19] MEDS: cefTRIAXone 1,000 MG in SODIUM CHLORIDE 0.9% 100 ML 200 ML IV (13:09)
[2021-04-19] MEDS: BISACODYL 5 MG TABLET PO (13:10)
[2021-04-19] MEDS: SODIUM CHLORIDE 0.9% 500 ML 1000 ML IV (13:10)
[2021-04-19] MEDS: POTASSIUM CHLORIDE 20 MEQ TAB 40 MEQ PO (13:10)
[2021-04-19] MEDS: polyethylene glycoL 3350 17 GM POWD.PACK PO (13:11)
--- NOTE | 2021-04-19 13:28 | PM.PN.EICU ---
Subjective Subjective :: This patient was seen via real time interactive two-way audiovisual telecommunication. patient still requiring high fio2. self prones at night. Imaging from this AM reviewed - no signifcant change. lytes repleted Current Medications Current Medications Medications: Home Medications atorvastatin 20 mg tablet 20 mg PO BEDTIME 04/15/21 [History Confirmed 04/15/21] Visit Medications (administered) Generic Name Dose Route Start Last Admin Trade Name Freq PRN Reason Stop Dose Admin Bisacodyl 5 mg 04/19/21 12:42 04/19/21 13:10 Bisacodyl 5 Mg Tablet PO 5 mg BID PRN Administration Constipation Dexamethasone 6 mg 04/15/21 09:00 04/19/21 09:06 Dexamethasone 10 Mg/Ml Vial IV 6 mg DAILY JERAD Administration Docusate Sodium 100 mg 04/17/21 21:00 04/19/21 09:06 Docusate 100 Mg Capsule PO 100 mg BID JERAD Administration Enoxaparin Sodium 40 mg 04/17/21 21:00 04/19/21 09:06 Enoxaparin 40 Mg/0.4 Ml Syringe SUBCUT 40 mg BID JERAD Administration Guaifenesin/Codeine Phosphate 5 ml 04/16/21 08:30 04/18/21 20:55 Codeine/Guaifenesin Liquid 5ml Udc PO 5 ml Q6H PRN Administration Cough Lorazepam 0.5 mg 04/15/21 00:26 04/17/21 20:23 Lorazepam 0.5 Mg Tablet PO 0.5 mg Q4H PRN Administration Anxiety Pantoprazole Sodium 20 mg 04/15/21 06:00 04/19/21 05:[address] 20 Mg Tablet PO 20 mg 0600 JERAD Administration Polyethylene Glycol 17 gm 04/19/21 12:42 04/19/21 13:11 Polyethylene Glycol 3350 17 Gm Powd.Pack PO 17 gm DAILY PRN Administration constipation Sodium Chloride 10 ml 04/17/21 21:00 04/19/21 09:07 Sodium Chloride 0.9% Flush IV 10 ml BID JERAD Administration Objective Ventilator Parameters: Ventilator Settings FiO2 75 Labs Result Diagrams: 04/19/21 12:21 04/19/21 12:21 Labs: Laboratory Results - last 24 hr 04/18/21 04/18/21 04/18/21 15:20 15:20 15:20 WBC 7.5 RBC 4.76 Hgb 14.7 Hct 42.5 MCV 89.4 MCH 30.9 MCHC 34.6 RDW 13.7 Plt Count 274 Neut % (Auto) 84.6 H Lymph % (Auto) 7.1 L [place] % (Auto) 8.0 Eos % (Auto) 0.0 L Baso % (Auto) 0.3 Neut # (Auto) 6300 Lymph # (Auto) 500 L [place] # (Auto) 600 Eos # (Auto) 0 Baso # (Auto) 0 D-Dimer 781 H Sodium 134 L Potassium 3.7 Chloride 96 L Carbon Dioxide 29 BUN 31 H Creatinine 0.85 Estimated GFR > 60.0 BUN/Creatinine Ratio 36.5 H Glucose 183 H Calcium 8.4 Total Bilirubin AST ALT Alkaline Phosphatase Total Protein Albumin Globulin Albumin/Globulin Ratio 04/19/21 04/19/21 12:21 12:21 WBC 12.2 H D RBC 4.77 Hgb 14.7 Hct 42.7 MCV 89.5 MCH 30.8 MCHC 34.4 RDW 13.8 Plt Count 322 Neut % (Auto) 84.4 H Lymph % (Auto) 6.5 L [place] % (Auto) 8.8 Eos % (Auto) 0.1 L Baso % (Auto) 0.2 Neut # (Auto) 06212 H Lymph # (Auto) 800 L [place] # (Auto) 1100 H Eos # (Auto) 0 Baso # (Auto) 0 D-Dimer Sodium 137 Potassium 3.3 L Chloride 95 L Carbon Dioxide 36 H BUN 33 H Creatinine 1.26 H Estimated GFR > 60.0 BUN/Creatinine Ratio 26.2 H Glucose 125 H Calcium 8.5 Total Bilirubin 1.0 AST 134 H ALT 237 H Alkaline Phosphatase 67 Total Protein 6.4 Albumin 3.7 Globulin 2.7 Albumin/Globulin Ratio 1.4 Exam Vital Signs (past 8 hours): - 04/19/21 05:45 04/19/21 08:10 04/19/21 08:30 Temperature 98.7 F 97.2 F L Pulse Rate 56 L 63 58 L Respiratory Rate 22 20 20 Blood Pressure 98/65 96/55 L Pulse Oximetry 97 92 90 L 04/19/21 11:30 Temperature 98.1 F Pulse Rate 62 Respiratory Rate 21 Blood Pressure 87/61 L Pulse Oximetry 91 Fraction of Inspired Oxygen 80 Oxygen Delivery Method Heated High Flow Oxygen Flow Rate 60 Assessment & Plan Assessment & Plan narrative: ARDS possible prob gram neg pna obesity Plan continue supplemental o2 encourage self proning trend ABG tte on dexamehtasone, remdesivr and barticinib continue po intake goal negative balance continue lasix at current dosing dvt ppx trend bmp and cbc monitor UO finished abx today his clinical course seems to be wrosening. I am concerned he will soon require mechanical ventilation. CCT 35 min Time Spent With Patient Critical Care time: I spent a total of [] minutes of critical care time on this patient's care today; this time is exclusive of procedural time.
--- NOTE | 2021-04-19 15:11 | CM.DPC ---
DCP continued: patient still in ICU [place] O2 sat 88% on 60L with 80% FIO2. BP 87/61, according to MD note: his clinical course seems to be worsening. I am concerned he will soon require mechanical ventilation. P: team to assess via telephone when medically appropriate to do so. Anticipate home when stable. Neena Che RNpolice chief deputy
--- NOTE | 2021-04-19 18:06 | P.PN_ITS ---
Subjective Subjective Date Patient Seen: 04/19/21 Time Patient Seen: 18:06 Interval history: Somewhat improved cough. He has proned most of the night. He still has shortness of breath and remains on heated high flow. Symptoms he states are quite similar today. Denies chest pain, abdominal pain, nausea, vomiting. Exam Vital Signs (past 8 hours): - 04/19/21 11:00 04/19/21 11:30 04/19/21 13:33 Temperature 98.1 F Pulse Rate 62 Respiratory Rate 20 21 24 Blood Pressure 87/61 L 87/61 L Pulse Oximetry 93 91 88 L 04/19/21 15:30 04/19/21 16:30 04/19/21 17:52 Temperature 98.0 F Pulse Rate 63 91 H Respiratory Rate 21 20 20 Blood Pressure 119/70 119/70 Pulse Oximetry 99 94 88 L Fraction of Inspired Oxygen 80 Oxygen Delivery Method Heated High Flow Oxygen Flow Rate 60 Narrative Exam Narrative: General: no acute distress, sitting up in hospital bed eating lunch. Lungs:?poor air movement, no obvious wheezing rhonchi or rales Cardio:?regular rate and regular rhythm without murmur Abdomen:? Soft nontender, nondistended, no organomegaly Psych:? avoidant, very flat affect, short responses Objective Labs Result Diagrams: 04/19/21 12:21 04/19/21 12:21 Labs: Laboratory Results - last 24 hr 04/19/21 04/19/21 12:21 12:21 WBC 12.2 H D RBC 4.77 Hgb 14.7 Hct 42.7 MCV 89.5 MCH 30.8 MCHC 34.4 RDW 13.8 Plt Count 322 Neut % (Auto) 84.4 H Lymph % (Auto) 6.5 L [place] % (Auto) 8.8 Eos % (Auto) 0.1 L Baso % (Auto) 0.2 Neut # (Auto) 92988 H Lymph # (Auto) 800 L [place] # (Auto) 1100 H Eos # (Auto) 0 Baso # (Auto) 0 Sodium 137 Potassium 3.3 L Chloride 95 L Carbon Dioxide 36 H BUN 33 H Creatinine 1.26 H Estimated GFR > 60.0 BUN/Creatinine Ratio 26.2 H Glucose 125 H Calcium 8.5 Total Bilirubin 1.0 AST 134 H ALT 237 H Alkaline Phosphatase 67 Total Protein 6.4 Albumin 3.7 Globulin 2.7 Albumin/Globulin Ratio 1.4 PFSH Medical History (Updated 04/15/21 @ 04:55 by Юлия Lorenzo [facility]-) COVID-19 History of pineal cyst Hyperlipidemia Obesity (BMI 30.0-34.9) Surgical History (Updated 04/15/21 @ 04:55 by DALLIN Cuevas-) History of elbow surgery History of repair of anterior cruciate ligament of left knee Family History (Updated 04/15/21 @ 04:56 by [facility] Mother Diabetes mellitus Hypertension Hypothyroidism Father Aneurysm Social History household members: spouse Assessment & Plan Assessment & Plan narrative: 46M with PMH of obesity and hyperlipidemia admitted for acute hypoxemic respiratory failure secondary to COVID 19 pneumonia. 1. Acute respiratory failure with hypoxia, secondary to COVID-19 pneumonia, severe, present on admission. Possible bacterial pneumonia. -currently on heated high flow, sat goal >88% -patient education provided regarding acquiring vaccination following recovery from COVID pneumonia.? -respiratory consult PRN, spirometry -patient started on remdesivir, dexamethasone, and baricitinib -albuterol HFA inhaler 2 puffs q.4 hours as needed for cough or shortness of breath -Ativan for increased anxiety due to isolation -blood and sputum cultures pending -patient to complete course of antibiotics today for possible bacterial pneumonia. 2. Hyperlipidemia, chronic, present on admission -continue patient's Lipitor 20 mg 3. Obesity as evidence by BMI of 31.7, acute on chronic, present on admission -consideration will be given for dietary counseling I spent 30 minutes providing critical care management this patient.? This excludes time spent in performing separately billed procedures. Time Spent With Patient Critical Care time: I spent a total of [] minutes of critical care time on this patient's care today; this time is exclusive of procedural time.
[2021-04-19 20:44] LABS: Blood Urea Nitrogen 32 mg/dL (9-20); Calcium 8.3 mg/dL (8.4-10.2); Carbon Dioxide 29 mmol/L (22-32); Chloride 100 mmol/L (98-107); Estimated Glomerular Filt Rate > 60.0 mL/min (>60); Glucose 182 mg/dL (70-100); HEMOLYSIS < 15 (0-50); Potassium 4.1 mmol/L (3.4-5.1); Sodium 134 mmol/L (137-145)
[2021-04-19] MEDS: SENNOSIDES 8.6 MG TABLET 17.2 MG PO (20:57)
[2021-04-20] VITALS (19 sets, daily range): BP systolic 97–157; BP diastolic 61–70; PULSE 55–79; RESP 16–26; TEMP 36.1–36.8; O2SAT 88–97
--- NOTE | 2021-04-20 01:28 | PM.ICURNDS ---
- Date Patient Seen: 04/20/21 Time Patient Seen: 00:49 :: This patient was seen via real time interactive two-way audiovisual telecommunication. Note: Patient is proned on camera. On 55 L/min 70% FiO2. Labs/orders reviewed; continue present management. Discussed with RN.
[2021-04-20] MEDS: PANTOPRAZOLE DR 20 MG TABLET PO (04:55)
--- NOTE | 2021-04-20 08:06 | P.PN_ITS ---
Subjective Subjective Date Patient Seen: 04/20/21 Interval history: He is seen in his room here on 04/20/2021. He is also rounded on with the nurses and the tele window shade cutter and mounter over video. Dr. Zuniga. He is quite glum, not responding to my greeting until I am standing right in front of him and then only barely acknowledging me. The nurses tell me that this has been his affect for several days. He is now off remdesivir with his liver enzymes now dropping, AST down to 123 from 134 and ALT of 237 down from 258. He has 2 more days of Baricitinib. His vitals are stable with a respiratory rate of 26. Exam Vital Signs (past 8 hours): - 04/20/21 01:24 04/20/21 03:30 04/20/21 04:00 Temperature Pulse Rate 58 L 55 L Respiratory Rate 22 26 H 16 Blood Pressure Pulse Oximetry 97 97 95 04/20/21 05:00 04/20/21 05:16 Temperature 98.3 F Pulse Rate 62 58 L Respiratory Rate 16 26 H Blood Pressure 101/70 Pulse Oximetry 96 97 Fraction of Inspired Oxygen 67 Oxygen Delivery Method Heated High Flow Oxygen Flow Rate 55 Narrative Exam Narrative: He is alert and oriented x3. He engages but only minimally. His affect is quite down cast. Heart is regular rate and rhythm without murmur Lungs are clear to auscultation bilaterally There is no ankle edema Objective Labs Result Diagrams: 04/20/21 08:00 04/20/21 08:00 Labs: Laboratory Results - last 24 hr 04/19/21 04/19/21 04/19/21 12:21 12:21 20:25 WBC 12.2 H D RBC 4.77 Hgb 14.7 Hct 42.7 MCV 89.5 MCH 30.8 MCHC 34.4 RDW 13.8 Plt Count 322 Neut % (Auto) 84.4 H Lymph % (Auto) 6.5 L [place] % (Auto) 8.8 Eos % (Auto) 0.1 L Baso % (Auto) 0.2 Neut # (Auto) 05146 H Lymph # (Auto) 800 L [place] # (Auto) 1100 H Eos # (Auto) 0 Baso # (Auto) 0 Sodium 137 134 L Potassium 3.3 L 4.1 Chloride 95 L 100 Carbon Dioxide 36 H 29 BUN 33 H 32 H Creatinine 1.26 H 0.89 Estimated GFR > 60.0 > 60.0 BUN/Creatinine Ratio 26.2 H 36.0 H Glucose 125 H 182 H Calcium 8.5 8.3 L Total Bilirubin 1.0 AST 134 H ALT 237 H Alkaline Phosphatase 67 Total Protein 6.4 Albumin 3.7 Globulin 2.7 Albumin/Globulin Ratio 1.4 PFSH Medical History (Updated 04/15/21 @ 04:55 by Юлия Lorenzo [employer]-) COVID-19 History of pineal cyst Hyperlipidemia Obesity (BMI 30.0-34.9) Surgical History (Updated 04/15/21 @ 04:55 by ADLLIN Cuevas-) History of elbow surgery History of repair of anterior cruciate ligament of left knee Family History (Updated 04/15/21 @ 04:56 by DALLIN Cuevas-) Mother Diabetes mellitus Hypertension Hypothyroidism Father Aneurysm Social History household members: spouse Assessment & Plan Assessment & Plan narrative: 46M with PMH of obesity and hyperlipidemia admitted for acute hypoxemic respiratory failure secondary to COVID 19 pneumonia. 1. Acute respiratory failure with hypoxia, secondary to COVID-19 pneumonia, severe, present on admission. Possible bacterial pneumonia. -currently on heated high flow, sat goal >88% -patient education provided regarding acquiring vaccination following recovery from COVID pneumonia. -respiratory consult PRN, spirometry -patient was originally started on remdesivir, dexamethasone, and baricitinib -albuterol HFA inhaler 2 puffs q.4 hours as needed for cough or shortness of breath -Ativan for increased anxiety due to isolation -blood and sputum cultures pending -he has completed Remdesivir and antibiotics for possible bacterial pneumonia -following stabilizing/improving LFT now off the Remdesivir -Continue Baricitinib for 2 more days. 2. Hyperlipidemia, chronic, present on admission -continue patient's Lipitor 20 mg 3. Obesity as evidence by BMI of 31.7, acute on chronic, present on admission -consideration will be given for dietary counseling 4. Depression -downcast affect of prolonged isolation -recommend antidepressant therapy if interested 5. Elevated Liver Enzymes -Follow, likely from Remdesivir (now completed) Enoxaparin For DVT prevention. Time Spent With Patient Critical Care time: I spent a total of [] minutes of critical care time on this patient's care today; this time is exclusive of procedural time.
[2021-04-20 09:15] LABS: Alanine Aminotransferase 258 IU/L (<50); Albumin 3.4 g/dL (3.5-5.0); Albumin Globulin Ratio 1.4 (1.0-2.8); Alkaline Phosphatase 65 U/L (38-126); Aspartate Aminotransferase 123 IU/L (17-59); BUN Creatinine Ratio 30.2 (6-22); Bilirubin Total 0.9 mg/dL (0.2-1.3); Blood Urea Nitrogen 29 mg/dL (9-20); Calcium 8.5 mg/dL (8.4-10.2); Carbon Dioxide 32 mmol/L (22-32); Chloride 101 mmol/L (98-107); Estimated Glomerular Filt Rate > 60.0 mL/min (>60); Globulin 2.5 g/dL (1.7-4.1); Glucose 87 mg/dL (70-100); HEMOLYSIS < 15 (0-50); Potassium 3.7 mmol/L (3.4-5.1); Sodium 136 mmol/L (137-145); Total Protein 5.9 g/dL (6.3-8.2)
[2021-04-20 09:18] LABS: Add Manual Diff / Slide Review NO; Basophils Absolute Auto 0 /uL (0-100); Basophils Percent Auto 0.1 % (0-2); Eosinophils Absolute Auto 100 /uL (0-450); Eosinophils Percent Auto 0.8 % (2-4); Hematocrit 41.4 % (41-53); Hemoglobin 14.2 g/dL (13.5-17.5); Lymphocytes Absolute Auto 1900 /uL (1100-4500); Lymphocytes Percent Auto 16.9 % (25-40); Mean Corpuscular HGB Conc 34.2 % (30-36); Mean Corpuscular Hemoglobin 30.9 PG (26-34); Mean Corpuscular Volume 90.4 fL (80-100); Monocytes Absolute Auto 1100 /uL (0-900); Monocytes Percent Auto 9.7 % (3-14); Neutrophils Absolute Auto 8100 /uL (1500-7000); Neutrophils Percent Auto 72.5 % (50-75); Platelet Count 350 X10^3/uL (150-400); Red Blood Cell Count 4.58 X10^6/uL (4.5-5.9); Red Cell Distribution Width 13.9 % (11.6-14.8); White Blood Cell Count 11.2 X10^3/uL (4.5-11.0)
[2021-04-20] MEDS: BISACODYL 5 MG TABLET PO (09:30)
[2021-04-20] MEDS: SODIUM CHLORIDE 0.9% FLUSH 10 ML IV ×2 (09:48→20:42)
[2021-04-20] MEDS: polyethylene glycoL 3350 17 GM POWD.PACK PO (09:50)
[2021-04-20] MEDS: ENOXAPARIN 40 MG/0.4 ML SYRINGE SUBCUT ×2 (09:50→20:33)
[2021-04-20] MEDS: BARICITINIB 2 MG TABLET 4 MG PO (09:50)
[2021-04-20] MEDS: DOCUSATE 100 MG CAPSULE PO ×2 (09:50→20:33)
[2021-04-20] MEDS: DEXAMETHASONE 10 MG/ML VIAL 6 MG IV (09:51)
--- NOTE | 2021-04-20 13:12 | PM.PN.EICU ---
Subjective Subjective :: This patient was seen via real time interactive two-way audiovisual telecommunication. he remains on high flow at 85%. is able to self prone, but clinically dosent seem ot be improving. His LFt are climbing as well Current Medications Current Medications Medications: Home Medications atorvastatin 20 mg tablet 20 mg PO BEDTIME 04/15/21 [History Confirmed 04/15/21] Visit Medications (administered) Generic Name Dose Route Start Last Admin Trade Name Freq PRN Reason Stop Dose Admin Bisacodyl 5 mg 04/19/21 12:42 04/19/21 13:10 Bisacodyl 5 Mg Tablet PO 5 mg BID PRN Administration Constipation Dexamethasone 6 mg 04/15/21 09:00 04/20/21 09:51 Dexamethasone 10 Mg/Ml Vial IV 6 mg DAILY JERAD Administration Docusate Sodium 100 mg 04/17/21 21:00 04/20/21 09:50 Docusate 100 Mg Capsule PO 100 mg BID JERAD Administration Enoxaparin Sodium 40 mg 04/17/21 21:00 04/20/21 09:50 Enoxaparin 40 Mg/0.4 Ml Syringe SUBCUT 40 mg BID JERAD Administration Guaifenesin/Codeine Phosphate 5 ml 04/16/21 08:30 04/18/21 20:55 Codeine/Guaifenesin Liquid 5ml Udc PO 5 ml Q6H PRN Administration Cough Lorazepam 0.5 mg 04/15/21 00:26 04/17/21 20:23 Lorazepam 0.5 Mg Tablet PO 0.5 mg Q4H PRN Administration Anxiety Pantoprazole Sodium 20 mg 04/15/21 06:00 04/20/21 04:[address] 20 Mg Tablet PO 20 mg 0600 JERAD Administration Polyethylene Glycol 17 gm 04/19/21 12:42 04/20/21 09:50 Polyethylene Glycol 3350 17 Gm Powd.Pack PO 17 gm DAILY PRN Administration constipation Sennosides 17.2 mg 04/19/21 21:00 04/19/21 20:57 Sennosides 8.6 Mg Tablet PO 17.2 mg BEDTIME JERAD Administration Sodium Chloride 10 ml 04/17/21 21:00 04/20/21 09:48 Sodium Chloride 0.9% Flush IV 10 ml BID JERAD Administration Objective Ventilator Parameters: Ventilator Settings FiO2 75 Labs Result Diagrams: 04/20/21 08:00 04/20/21 08:00 Labs: Laboratory Results - last 24 hr 04/19/21 04/20/21 04/20/21 20:25 08:00 08:00 WBC 11.2 H RBC 4.58 Hgb 14.2 Hct 41.4 MCV 90.4 MCH 30.9 MCHC 34.2 RDW 13.9 Plt Count 350 Neut % (Auto) 72.5 Lymph % (Auto) 16.9 L [place] % (Auto) 9.7 Eos % (Auto) 0.8 L Baso % (Auto) 0.1 Neut # (Auto) 8100 H Lymph # (Auto) 1900 [place] # (Auto) 1100 H Eos # (Auto) 100 Baso # (Auto) 0 Sodium 134 L 136 L Potassium 4.1 3.7 Chloride 100 101 Carbon Dioxide 29 32 BUN 32 H 29 H Creatinine 0.89 0.96 Estimated GFR > 60.0 > 60.0 BUN/Creatinine Ratio 36.0 H 30.2 H Glucose 182 H 87 Calcium 8.3 L 8.5 Total Bilirubin 0.9 AST 123 H ALT 258 H Alkaline Phosphatase 65 Total Protein 5.9 L Albumin 3.4 L Globulin 2.5 Albumin/Globulin Ratio 1.4 Exam Vital Signs (past 8 hours): - 04/20/21 05:16 04/20/21 07:20 04/20/21 07:45 Temperature 98.2 F Pulse Rate 58 L 65 73 Respiratory Rate 26 H 18 16 Blood Pressure 101/70 103/61 Pulse Oximetry 97 96 95 04/20/21 09:39 04/20/21 11:18 Temperature Pulse Rate 74 79 Respiratory Rate 20 20 Blood Pressure 103/61 103/61 Pulse Oximetry 88 L 92 Fraction of Inspired Oxygen 70 Oxygen Delivery Method Heated High Flow Oxygen Flow Rate 60 Narrative Exam Narrative: surrogate for exam is primary team Assessment & Plan Assessment & Plan narrative: ARDS possible prob gram neg pna obesity Plan continue supplemental o2 encourage self proning spo2 goal > 88 incentive spriometry tte on dexamehtasone, finished remdesivr and barticinib trend LFT - if they climb further may need to stop baricintib continue po intake goal negative balance continue lasix at current dosing dvt ppx trend bmp and cbc monitor UO finished abx his clinical course seems to be wrosening. I am concerned he will soon require mechanical ventilation. CCT 35 min Time Spent With Patient Critical Care time: I spent a total of [] minutes of critical care time on this patient's care today; this time is exclusive of procedural time.
[2021-04-20] MEDS: SENNOSIDES 8.6 MG TABLET 17.2 MG PO (20:33)
--- NOTE | 2021-04-20 22:26 | PM.ICURNDS ---
- Date Patient Seen: 04/20/21 Time Patient Seen: 20:31 :: This patient was seen via real time interactive two-way audiovisual telecommunication. Note: Patient is on 55 L/min 60% HFNC. Constipation remains an issue. He is self-proning at night and walking around the room at times. Labs/orders reviewed; continue present management with the addition of an intensified bowel regimen. Discussed with RT/RN.
[2021-04-21] VITALS (15 sets, daily range): BP systolic 100–116; BP diastolic 62–83; PULSE 51–84; RESP 16–22; TEMP 36.1–36.8; O2SAT 90–97
[2021-04-21 04:40] LABS: Hematocrit 41.1 % (41-53); Hemoglobin 14.1 g/dL (13.5-17.5); Mean Corpuscular HGB Conc 34.2 % (30-36); Mean Corpuscular Hemoglobin 30.5 PG (26-34); Mean Corpuscular Volume 89.1 fL (80-100); Platelet Count 374 X10^3/uL (150-400); Red Blood Cell Count 4.61 X10^6/uL (4.5-5.9); Red Cell Distribution Width 13.7 % (11.6-14.8); White Blood Cell Count 10.5 X10^3/uL (4.5-11.0)
[2021-04-21 04:41] LABS: Add Manual Diff / Slide Review YES
[2021-04-21 04:47] LABS: Alanine Aminotransferase 262 IU/L (<50); Albumin 3.2 g/dL (3.5-5.0); Albumin Globulin Ratio 1.2 (1.0-2.8); Alkaline Phosphatase 55 U/L (38-126); Aspartate Aminotransferase 103 IU/L (17-59); BUN Creatinine Ratio 29.1 (6-22); Bilirubin Total 0.9 mg/dL (0.2-1.3); Blood Urea Nitrogen 23 mg/dL (9-20); Calcium 8.6 mg/dL (8.4-10.2); Carbon Dioxide 30 mmol/L (22-32); Chloride 100 mmol/L (98-107); Estimated Glomerular Filt Rate > 60.0 mL/min (>60); Globulin 2.6 g/dL (1.7-4.1); Glucose 100 mg/dL (70-100); HEMOLYSIS < 15 (0-50); Potassium 3.9 mmol/L (3.4-5.1); Sodium 132 mmol/L (137-145); Total Protein 5.8 g/dL (6.3-8.2)
[2021-04-21] MEDS: PANTOPRAZOLE DR 20 MG TABLET PO (05:02)
[2021-04-21 06:35] LABS: Neutrophils Absolute Manual 8400 /uL (3000-5900); RBC Morphology Normal Morphology; Total Cells Counted 100
[2021-04-21] MEDS: LACTULOSE 20 GM/30 ML SOLUTION PO ×2 (08:22→14:06)
[2021-04-21] MEDS: DEXAMETHASONE 10 MG/ML VIAL 6 MG IV (10:06)
[2021-04-21] MEDS: ENOXAPARIN 40 MG/0.4 ML SYRINGE SUBCUT ×2 (10:06→21:13)
[2021-04-21] MEDS: SODIUM CHLORIDE 0.9% FLUSH 10 ML IV ×2 (10:07→21:15)
[2021-04-21] MEDS: BARICITINIB 2 MG TABLET 4 MG PO (10:17)
--- NOTE | 2021-04-21 12:45 | PC.NURSE ---
pt up in chair since 0800. lactolose po started for constipation. second dose this afternooon. pt attempted to have a BM with no results. pt with good appetite. encouraged to wash up or shower. O2 HHF decreased to 55L/45% at 1100. RR 24, CTA, no cough noted. pt's affect flat.
--- NOTE | 2021-04-21 13:26 | PM.PN.EICU ---
Subjective Subjective :: This patient was seen via real time interactive two-way audiovisual telecommunication. leticia seems to be imrpoving now, fio2 down to 50%, however he does have exertional dyspnea Current Medications Current Medications Medications: Home Medications atorvastatin 20 mg tablet 20 mg PO BEDTIME 04/15/21 [History Confirmed 04/15/21] Visit Medications (administered) Generic Name Dose Route Start Last Admin Trade Name Freq PRN Reason Stop Dose Admin Bisacodyl 5 mg 04/19/21 12:42 04/20/21 09:30 Bisacodyl 5 Mg Tablet PO 5 mg BID PRN Administration Constipation Dexamethasone 6 mg 04/15/21 09:00 04/21/21 10:06 Dexamethasone 10 Mg/Ml Vial IV 6 mg DAILY JERAD Administration Docusate Sodium 100 mg 04/21/21 09:00 04/21/21 10:17 Docusate 100 Mg Capsule PO Not Given TID JERAD Enoxaparin Sodium 40 mg 04/17/21 21:00 04/21/21 10:06 Enoxaparin 40 Mg/0.4 Ml Syringe SUBCUT 40 mg BID JERAD Administration Guaifenesin/Codeine Phosphate 5 ml 04/16/21 08:30 04/18/21 20:55 Codeine/Guaifenesin Liquid 5ml Udc PO 5 ml Q6H PRN Administration Cough Lactulose 20 gm 04/20/21 22:25 04/21/21 08:22 Lactulose 20 Gm/30 Ml Solution PO 20 gm TID PRN Administration Constipation Lorazepam 0.5 mg 04/15/21 00:26 04/17/21 20:23 Lorazepam 0.5 Mg Tablet PO 0.5 mg Q4H PRN Administration Anxiety Pantoprazole Sodium 20 mg 04/15/21 06:00 04/21/21 05:[address] 20 Mg Tablet PO 20 mg 0600 JERAD Administration Polyethylene Glycol 17 gm 04/19/21 12:42 04/20/21 09:50 Polyethylene Glycol 3350 17 Gm Powd.Pack PO 17 gm DAILY PRN Administration constipation Sennosides 17.2 mg 04/19/21 21:00 04/20/21 20:33 Sennosides 8.6 Mg Tablet PO 17.2 mg BEDTIME JERAD Administration Sodium Chloride 10 ml 04/17/21 21:00 04/21/21 10:07 Sodium Chloride 0.9% Flush IV 10 ml BID JERAD Administration Objective Ventilator Parameters: Ventilator Settings FiO2 75 Labs Result Diagrams: 04/21/21 04:23 04/21/21 04:23 Labs: Laboratory Results - last 24 hr 04/21/21 04/21/21 04:23 04:23 WBC 10.5 RBC 4.61 Hgb 14.1 Hct 41.1 MCV 89.1 MCH 30.5 MCHC 34.2 RDW 13.7 Plt Count 374 Neut % (Auto) Not Reportable Lymph % (Auto) Not Reportable [place] % (Auto) Not Reportable Eos % (Auto) Not Reportable Baso % (Auto) Not Reportable Lymph # (Auto) Not Reportable [place] # (Auto) Not Reportable Baso # (Auto) Not Reportable Total Counted 100 Seg Neutrophils % 79.0 H Band Neutrophils % 1.0 L Lymphocytes % (Manual) 12.0 L Monocytes % (Manual) 8.0 Neutrophils # (Manual) 8400 H RBC Morphology Normal morphology Sodium 132 L Potassium 3.9 Chloride 100 Carbon Dioxide 30 BUN 23 H Creatinine 0.79 Estimated GFR > 60.0 BUN/Creatinine Ratio 29.1 H Glucose 100 Calcium 8.6 Total Bilirubin 0.9 AST 103 H ALT 262 H Alkaline Phosphatase 55 Total Protein 5.8 L Albumin 3.2 L Globulin 2.6 Albumin/Globulin Ratio 1.2 Exam Vital Signs (past 8 hours): - 04/21/21 09:20 04/21/21 09:42 04/21/21 11:40 Temperature 97.9 F Pulse Rate 75 68 77 Respiratory Rate 16 18 18 Blood Pressure 100/66 100/66 100/66 Pulse Oximetry 95 92 91 04/21/21 12:41 Temperature 98.1 F Pulse Rate 83 Respiratory Rate 18 Blood Pressure 105/62 Pulse Oximetry 92 Fraction of Inspired Oxygen 0.50 Oxygen Delivery Method Heated High Flow Oxygen Flow Rate 55 Narrative Exam Narrative: surrogate for exam is primary team Assessment & Plan Assessment & Plan narrative: ARDS possible prob gram neg pna obesity Plan continue supplemental o2 encourage self proning spo2 goal > 88 incentive spriometry tte on dexamehtasone, finished? remdesivr and barticinib LFT up trending still, will stop baricitnib continue po intake goal negative balance continue lasix at current dosing dvt ppx trend bmp and cbc monitor UO finished abx CCT 35 min Time Spent With Patient Critical Care time: I spent a total of [] minutes of critical care time on this patient's care today; this time is exclusive of procedural time.
--- NOTE | 2021-04-21 18:54 | PM.PN.1 ---
Subjective Subjective Date Patient Seen: 04/21/21 Interval history: 46-year-old male with severe COVID pneumonia being followed by [facility] ICU as well. He was able to prone 12 hours overnight. Currently sitting in chair. Seems withdrawn. Currently on heated high-flow 55 L, 45% FiO2. Exam Vital Signs (past 8 hours): - 04/21/21 11:40 04/21/21 12:41 04/21/21 13:46 Temperature 98.1 F Pulse Rate 77 83 75 Respiratory Rate 18 18 18 Blood Pressure 100/66 105/62 100/62 Pulse Oximetry 91 92 90 L 04/21/21 15:30 04/21/21 16:00 04/21/21 16:10 Temperature 97.4 F L Pulse Rate 84 71 Respiratory Rate 18 20 Blood Pressure 105/62 104/83 Pulse Oximetry 93 94 93 Fraction of Inspired Oxygen 0.50 Oxygen Delivery Method High Flow Nasal Cannula Oxygen Flow Rate 8 Narrative Exam Narrative: General: Alert but emotionally withdrawn male appearing relatively comfortable on heated high-flow, respiratory rate 20 Objective Labs Result Diagrams: 04/21/21 04:23 04/21/21 04:23 Labs: Laboratory Results - last 24 hr 04/21/21 04/21/21 04:23 04:23 WBC 10.5 RBC 4.61 Hgb 14.1 Hct 41.1 MCV 89.1 MCH 30.5 MCHC 34.2 RDW 13.7 Plt Count 374 Neut % (Auto) Not Reportable Lymph % (Auto) Not Reportable [place] % (Auto) Not Reportable Eos % (Auto) Not Reportable Baso % (Auto) Not Reportable Lymph # (Auto) Not Reportable [place] # (Auto) Not Reportable Baso # (Auto) Not Reportable Total Counted 100 Seg Neutrophils % 79.0 H Band Neutrophils % 1.0 L Lymphocytes % (Manual) 12.0 L Monocytes % (Manual) 8.0 Neutrophils # (Manual) 8400 H RBC Morphology Normal morphology Sodium 132 L Potassium 3.9 Chloride 100 Carbon Dioxide 30 BUN 23 H Creatinine 0.79 Estimated GFR > 60.0 BUN/Creatinine Ratio 29.1 H Glucose 100 Calcium 8.6 Total Bilirubin 0.9 AST 103 H ALT 262 H Alkaline Phosphatase 55 Total Protein 5.8 L Albumin 3.2 L Globulin 2.6 Albumin/Globulin Ratio 1.2 [facility] Medical History (Updated 04/15/21 @ 04:55 by DALLIN Cuevas-) COVID-19 History of pineal cyst Hyperlipidemia Obesity (BMI 30.0-34.9) Surgical History (Updated 04/15/21 @ 04:55 by DALLIN Cuevas-) History of elbow surgery History of repair of anterior cruciate ligament of left knee Family History (Updated 04/15/21 @ 04:56 by DALLIN Cuevas-) Mother Diabetes mellitus Hypertension Hypothyroidism Father Aneurysm Social History household members: spouse Assessment & Plan Assessment & Plan narrative: 1. Acute respiratory failure with hypoxia, secondary to COVID-19 pneumonia, severe -stable, continue dexamethasone -completed remdesivir and baracitinib -inc LFTs probably secondary to baracitinib -continue heated high flow -spo2 > 88 -continue treatment as outlined by ICU telehealth 2. Hyperlipidemia, chronic, present on admission -continue patient's Lipitor 20 mg 3. Obesity as evidence by BMI of 31.7, acute on chronic, present on admission -consideration will be given for dietary counseling 4. Depression -downcast affect of prolonged isolation -recommend antidepressant therapy if interested Time Spent With Patient Critical Care time: I spent a total of [] minutes of critical care time on this patient's care today; this time is exclusive of procedural time.
--- NOTE | 2021-04-21 22:40 | PM.ICURNDS ---
- :: This patient was seen via real time interactive two-way audiovisual telecommunication. Note: HFNC is down to 9L. He remains constipated despite addition of lactulose. Bisacodyl suppository ordered. Labs/orders reviewed. Overall, he is slowly improving. Continue present plan; discussed with RT and RN.
[2021-04-22] VITALS (10 sets, daily range): BP systolic 113–122; BP diastolic 65–73; PULSE 64–80; RESP 17–20; TEMP 36.6–37; O2SAT 90–96
[2021-04-22] MEDS: BISACODYL 10 MG SUPP PR (02:45)
[2021-04-22] MEDS: PANTOPRAZOLE DR 20 MG TABLET PO (04:48)
[2021-04-22 06:55] LABS: Add Manual Diff / Slide Review NO; Basophils Absolute Auto 0 /uL (0-100); Basophils Percent Auto 0.2 % (0-2); Eosinophils Absolute Auto 100 /uL (0-450); Eosinophils Percent Auto 0.9 % (2-4); Hematocrit 41.5 % (41-53); Lymphocytes Absolute Auto 1500 /uL (1100-4500); Lymphocytes Percent Auto 10.3 % (25-40); Mean Corpuscular HGB Conc 33.7 % (30-36); Mean Corpuscular Hemoglobin 30.4 PG (26-34); Mean Corpuscular Volume 90.2 fL (80-100); Monocytes Absolute Auto 1200 /uL (0-900); Monocytes Percent Auto 8.5 % (3-14); Neutrophils Absolute Auto 11400 /uL (1500-7000); Neutrophils Percent Auto 80.1 % (50-75); Platelet Count 483 X10^3/uL (150-400); Red Cell Distribution Width 13.9 % (11.6-14.8); White Blood Cell Count 14.2 X10^3/uL (4.5-11.0)
[2021-04-22 07:07] LABS: Alanine Aminotransferase 295 IU/L (<50); Albumin 3.4 g/dL (3.5-5.0); Albumin Globulin Ratio 1.4 (1.0-2.8); Alkaline Phosphatase 63 U/L (38-126); Aspartate Aminotransferase 116 IU/L (17-59); BUN Creatinine Ratio 26.2 (6-22); Bilirubin Total 0.7 mg/dL (0.2-1.3); Blood Urea Nitrogen 22 mg/dL (9-20); Calcium 8.7 mg/dL (8.4-10.2); Carbon Dioxide 28 mmol/L (22-32); Chloride 100 mmol/L (98-107); Estimated Glomerular Filt Rate > 60.0 mL/min (>60); Globulin 2.5 g/dL (1.7-4.1); Glucose 88 mg/dL (70-100); HEMOLYSIS < 15 (0-50); Sodium 134 mmol/L (137-145); Total Protein 5.9 g/dL (6.3-8.2)
[2021-04-22] MEDS: SODIUM CHLORIDE 0.9% FLUSH 10 ML IV ×2 (10:07→21:21)
[2021-04-22] MEDS: LACTULOSE 20 GM/30 ML SOLUTION PO (10:07)
[2021-04-22] MEDS: ENOXAPARIN 40 MG/0.4 ML SYRINGE SUBCUT ×2 (10:07→21:20)
[2021-04-22] MEDS: DEXAMETHASONE 10 MG/ML VIAL 6 MG IV (10:08)
--- NOTE | 2021-04-22 16:18 | DIET.PN1 ---
Dietary Progress Note Assessment: 46y Covid+ male screened by RD for LOS >5d. Pts POs 75-100%, no nutrition interventions needed at this time. Ht: 185.42 cm Wt: 110.3 kg BMI: 31.6 Last BM: 04/22/21 (04/22/21 07:00) MNA: 11 Dm Score: 22 Diet: 04/15/21 Breakfast General (Regular) Diet Diet Modifications: Nutrition Percent Meal Consumed 75% 04/22/21 15:00 Percent Meal Consumed 100% 04/22/21 07:00 Percent Meal Consumed 100% 04/21/21 14:14 Percent Meal Consumed 100% 04/20/21 19:05 Labs: RBC 4.60 X10^6/uL (4.5-5.9) 04/22/21 06:15 Hgb 14.0 g/dL (13.5-17.5) 04/22/21 06:15 Hct 41.5 % (41-53) 04/22/21 06:15 Creatinine 0.84 mg/dL (0.66-1.25) 04/22/21 06:15 Lactate 1.5 mmol/L (0.7-2.1) 04/14/21 20:08 NT-Pro-B Natriuret Pep 61 pg/mL (<125) 04/14/21 20:08 Electronically Signed by: Yomaira Kim 04/22/21 16:18 Clinical Dietitian [address] [address]
--- NOTE | 2021-04-22 18:23 | P.PN_ITS ---
Subjective Subjective Date Patient Seen: 04/22/21 Interval history: 46-year-old male with severe COVID pneumonia being followed by tele ICU as well. Patient is slowly improving, less dyspneic, came off heated high-flow on April 21, currnetly HFNC 8-9 l/m. He was started on lactulose for constipation. Exam Vital Signs (past 8 hours): - 04/22/21 15:09 04/22/21 16:00 04/22/21 17:30 Temperature 97.8 F Pulse Rate 80 73 Respiratory Rate 20 18 Blood Pressure 114/69 114/69 Pulse Oximetry 94 95 93 Fraction of Inspired Oxygen 0.50 Oxygen Delivery Method High Flow Nasal Cannula Oxygen Flow Rate 0 Narrative Exam Narrative: General: Alert, depressed affect Lungs: Clear Extremities: No edema Objective Labs Result Diagrams: 04/22/21 06:15 04/22/21 06:15 Labs: Laboratory Results - last 24 hr 04/22/21 04/22/21 06:15 06:15 WBC 14.2 H RBC 4.60 Hgb 14.0 Hct 41.5 MCV 90.2 MCH 30.4 MCHC 33.7 RDW 13.9 Plt Count 483 H Neut % (Auto) 80.1 H Lymph % (Auto) 10.3 L Price % (Auto) 8.5 Eos % (Auto) 0.9 L Baso % (Auto) 0.2 Neut # (Auto) 03743 H Lymph # (Auto) 1500 Price # (Auto) 1200 H Eos # (Auto) 100 Baso # (Auto) 0 Sodium 134 L Potassium 4.0 Chloride 100 Carbon Dioxide 28 BUN 22 H Creatinine 0.84 Estimated GFR > 60.0 BUN/Creatinine Ratio 26.2 H Glucose 88 Calcium 8.7 Total Bilirubin 0.7 AST 116 H ALT 295 H Alkaline Phosphatase 63 Total Protein 5.9 L Albumin 3.4 L Globulin 2.5 Albumin/Globulin Ratio 1.4 PFSH Medical History (Updated 04/15/21 @ 04:55 by CHRISTIANO Cuevas) COVID-19 History of pineal cyst Hyperlipidemia Obesity (BMI 30.0-34.9) Surgical History (Updated 04/15/21 @ 04:55 by CHRISTIANO Cuevas) History of elbow surgery History of repair of anterior cruciate ligament of left knee Family History (Updated 11/01/21 @ 04:56 by Юлия Lorenzo [facility]) Mother Diabetes mellitus Hypertension Hypothyroidism Father Aneurysm Social History household members: spouse Assessment & Plan Assessment & Plan narrative: 1. Acute respiratory failure with hypoxia, secondary to COVID-19 pneumonia, severe -stable, continue dexamethasone -completed remdesivir and baracitinib -inc LFTs stable -continue HFNC -spo2 > 88 -continue treatment as outlined by ICU telehealth 2. Hyperlipidemia, chronic, present on admission -continue patient's Lipitor 20 mg 3. Obesity as evidence by BMI of 31.7, acute on chronic, present on admission -consideration will be given for dietary counseling 4. Depression -downcast affect of prolonged isolation -recommend antidepressant therapy if interested Time Spent With Patient Critical Care time: I spent a total of [] minutes of critical care time on this patient's care today; this time is exclusive of procedural time.
--- NOTE | 2021-04-22 18:39 | PC.NURSE ---
AM shift Pt reports difficulty with constipation, ABD distended, tight. Fleets enema given and shower with minimal assist from staff. Small bm x2. Refused Michelle, miralax given and declined MN supp. Significant relief with voids so far. Showered, extenstion tubing placed on o2, ambulating in room to enc BM. Decreased 02 to 6.5L with good Spo2 this shift. When up to shower, increased back to 9L. Spo2 >88% all shift. Pt continues with flat affect. Upgraded to Floor care status.
[2021-04-22] MEDS: DOCUSATE 100 MG CAPSULE PO (21:20)
[2021-04-22] MEDS: SENNOSIDES 8.6 MG TABLET 17.2 MG PO (21:20)
[2021-04-23] VITALS: BP 113/74; PULSE 66; RESP 17; TEMP 36.8; O2SAT 98
[2021-04-23] MEDS: PANTOPRAZOLE DR 20 MG TABLET PO (05:07)
[2021-04-23 05:20] VITALS: BP 113/72; PULSE 66; RESP 18; TEMP 36.7; O2SAT 94
[2021-04-23 09:00] VITALS: BP 115/67; PULSE 87; RESP 15; TEMP 36.6; O2SAT 90
[2021-04-23] MEDS: DEXAMETHASONE 10 MG/ML VIAL 6 MG IV (09:38)
[2021-04-23] MEDS: BISACODYL 5 MG TABLET PO (09:38)
[2021-04-23] MEDS: LACTULOSE 20 GM/30 ML SOLUTION PO (09:38)
[2021-04-23] MEDS: DOCUSATE 100 MG CAPSULE PO (09:38)
[2021-04-23] MEDS: ENOXAPARIN 40 MG/0.4 ML SYRINGE SUBCUT (09:39)
--- NOTE | 2021-04-23 11:48 | PC.NURSE ---
Addendum entered by Юлия Medina R.N. 04/23/21 18:21: Pt d/c with home 02 on 5L meeting margarita at home for concentrator Education provided for rest breaks arrived at ER entrance for picker tender home. Addendum entered by Юлия Medina R.N. 04/23/21 17:37: After much teaching about home o2 use, Pt has decided to d/c home this evening. Asking appropriate questions re: home care and quarantine. 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 Original Note: Am shift Pt remains with flat affect, reports proning all NOC and 6L O2, up to chair this am with 5L and Goal of 88% or > and sustaining that. RT into do home eval for 02 and Pt tolerated 5L and ambulated. Slow recovery, but no significant desat at this time. Monitor and work on DC plans.
--- NOTE | 2021-04-23 12:32 | PM.DS.1 ---
History of Present Illness History of Present Illness Date Patient Seen: 04/23/21 Time Patient Seen: 08:00 Chief complaint: covid+, home test- y, dehdrated Narrative: Per Юлия Lorenzo: Jesus Murray is a 46-year-old gentleman with a hx of hyperlipidemia and over weight who presented yesterday, day 8 of his COVID infection, he is not vaccinated. His symptoms present 7 days ago with fevers, chills, body aches, cough, decreased taste, significant diarrhea over the last couple of days no vomiting but he is somewhat nauseated.? He has noted mild headaches, worsening fatigueand significant myalgias.? Yesterday he was having trouble going up the stairs and today he was dyspneic even walking across the room which triggered his emergency room visit.? On arrival sats were at 87% he was tachycardic and tachypneic to 30.? 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 Patient only takes Lipitor 20 mg daily.? Patient denies smoking, alcohol intake, recreational substance use.? Patient denies any cardiovascular history. Patient was assessed for admit down in the emergency room initial presenting vitals temp 98.9?, BP 124/78, HR 104, RR 42, 93% on 100% non-rebreather.? The patient was eventually placed on high-flow respiration rate decreased to 32 patient was on 60 L at 75%.? Patient's CBC and CMP were grossly normal, D-dimer was 542, Chest CTA demonstrated diffuse bilateral airspace opacities consistent with severe COVID-19 pneumonia. Nondiagnostic study for pulmonary embolism due to contrast opacification of the pulmonary arteries.? Within these limitations, no large central pulmonary artery embolus is seen in chest? Patient's chest x-ray demonstrated low lung volume, bilateral patchy airspace opacity.? Lactate, procalcitonin, and BNP, were all normal patient's lactate ED 1078, total creatinine kinase 1551, CK-2: 3.10, initial troponin 0.031.? I personally reviewed patient's EKG demonstrated sinus tachycardia with a rate of 112, otherwise normal EKG.? Patient admitted for acute respiratory failure due to severe COVID-19 pneumonia. Discharge Providers Provider Date of admission: 04/15/21 02:38 Discharge Date: 04/23/21 Primary care physician: Neena Real MD Consults: 04/15/21 00:21 Consult to Respiratory Therapy Evaluate & Treat Comment: Covid Pneumonia Physician Instructions: Evaluate and treat 04/23/21 08:20 Consult to Respiratory Therapy Evaluate & Treat Comment: eval for home O2 Physician Instructions: Evaluate and treat Discharge provider: Dave White MD Summary Hospital Course Discharge Diagnosis: 1. Acute respiratory failure with hypoxemia secondary to COVID pneumonia 2. Hyperlipidemia 3. Obesity 4. Depression Hospital Course: Mr. Murray is a 46 year old man with PMH hyperlipidemia, obesity who presented to the hospital with severe respiratory distress requiring high flow nasal cannula for oxygen. There was initially concern he would need to be intubated as he was near max on high flow nasal cannula. He was ordered for dexamethasone, remdesivir and baracitinib. He had slow improvement. However, on day of discharge he was improving. He was sats of 90% on 3-4L of oxygen at rest. He was able to ambulate with minimal desaturation. He did not have shortness of breath with this. He is recommended to have the COVID vaccine once he is asymptomatic. He is recommended to isolate as much as possible to lower risk of infecting others, for one week. Exam Vital Signs (past 8 hours): - 04/23/21 05:20 04/23/21 09:00 Temperature 98.0 F 98 F Pulse Rate 66 87 Respiratory Rate 18 15 Blood Pressure 113/72 115/67 Pulse Oximetry 94 90 L Fraction of Inspired Oxygen 0.50 Oxygen Delivery Method High Flow Nasal Cannula Oxygen Flow Rate 5 Narrative Exam Narrative: GEN: no acute distress PULM: clear bilaterally PSYCH: flat affect Objective Labs Result Diagrams: 04/22/21 06:15 04/22/21 06:15 [facility] Medical History (Updated 04/15/21 @ 04:55 by CHRISTIANO Cuevas) COVID-19 History of pineal cyst Hyperlipidemia Obesity (BMI 30.0-34.9) Surgical History (Updated 04/15/21 @ 04:55 by CHRISTIANO Cuevas) History of elbow surgery History of repair of anterior cruciate ligament of left knee Family History (Updated 04/15/21 @ 04:56 by Юлия Lorenzo [facility]) Mother Diabetes mellitus Hypertension Hypothyroidism Father Aneurysm Social History household members: spouse Discharge Plan Discharge Plan Patient Disposition: Home Provider Discharge Comment: Mr. Murray came in to the hospital with COVID pneumonia. He had a severe case. He slowly improved with treatment. On day of discharge he was improved and the amount of oxygen he was using was much lower, but still needing 3-4L of oxygen. Once he is asymptomatic he would still benefit from getting the vaccine to avoid reinfection. He should avoid interacting with other as much as possible for the next week. He did have some mild liver irritation secondary to the infection, he should follow up with his PCP in the next 1-2 weeks to make sure this is improving. Discharge orders & Medications Prescriptions: Discontinued atorvastatin 20 mg Tablet 20 mg PO BEDTIME RF: 0 Follow up/Referrals: Neena Real MD [Primary Care Provider] - Diet/Activity/Treatments Diet: Regular Discharge Data Primary Care Provider: Neena Real [facility] - MD The patient has current or prior documentation of left ventricular ejection fraction (LVEF) less than 40%, or moderate or severely depressed left ventricular systolic function.: No
== END 2021-04-23 18:20 | disposition home or self-care (01) | DRG 177 ==
LOC: ED 19:58 → ICU 04-15 03:38
PROVIDERS: Internal Medicine; Admitting Provider Nurse Practitioner Family; Emergency Provider Emergency Medicine; PCP Internal Medicine; Referring Provider Emergency Medicine; Visit Provider Nurse Practitioner Family
DX: U07.1 COVID-19 (principal); J12.82 Pneumonia due to coronavirus disease 2019; J15.9 Unspecified bacterial pneumonia; J80 Acute respiratory distress syndrome; E86.0 Dehydration; E66.9 Obesity, unspecified; Z68.31 Body mass index [BMI] 31.0-31.9, adult; K59.00 Constipation, unspecified; E78.5 Hyperlipidemia, unspecified; F32.A Depression, unspecified
CPT/HCPCS: 36415; 36592; 36600; 71045; 71275; 80048; 80053; 82550; 82553; 82805; 83605; 83615; 83735; 83880; 84145; 84484; 85007; 85025; 85027; 85379; 85610; 85730; 86140; 87040; 87633; 87797; 93005; 93970; 94618; 94760; 96361; 96374; 99285; A9270; J0696; J1100; J1644; J1650; J1940; Q9967

== ENCOUNTER → 2021-05-03 13:16 | Outpatient (CLI) | payer OTHER, SELFPAY ==
[2021-04-15 03:40] VITALS: BMI 31.6
== END ==
PROVIDERS: PCP Internal Medicine; Referring Provider Internal Medicine; Visit Provider Internal Medicine
DX: Z53.9 Procedure and treatment not carried out, unspecified reason (principal)

== ENCOUNTER → 2021-05-06 11:38 | Outpatient (CLI) | payer OTHER, SELFPAY ==
[2021-04-15 03:40] VITALS: BMI 31.6
--- NOTE | 2021-05-06 | DI.RAD.S_ITS ---
PROCEDURE: XR CHEST 2V INDICATIONS: PNEUMONIA DUE TO COVID-19 TECHNIQUE: 2 views of the chest were acquired. COMPARISON: [facility], , XR CHEST 1V, 04/19/2021, 10:18. FINDINGS: Surgical changes and devices: None. Lungs and pleura: No pleural effusion or pneumothorax. Bilateral perihilar and lower lobe patchy ground-glass and consolidative opacities Mediastinum: Mediastinal contours are normal. Heart size is normal. Bones and chest wall: No suspicious bony abnormalities. Soft tissues appear unremarkable. IMPRESSION: Multifocal pneumonia as before. Lung volumes slightly improved since 04/19/21. Dictated by: Bassam Diop M.D. on 05/06/2021 at 13:42 Approved by: Bassam Diop M.D. on 05/06/2021 at 13:44
== END ==
PROVIDERS: PCP Internal Medicine; Referring Provider Internal Medicine; Visit Provider Internal Medicine
DX: U07.1 COVID-19 (principal); J12.82 Pneumonia due to coronavirus disease 2019
CPT/HCPCS: 71046

== ENCOUNTER → 2021-08-01 13:04 | Outpatient (CLI) | payer OTHER, SELFPAY ==
[2021-04-15 03:40] VITALS: BMI 31.6
== END ==
PROVIDERS: PCP Internal Medicine; Visit Provider Nurse Practitioner Family
DX: R35.0 Frequency of micturition (principal)
CPT/HCPCS: 87086